=== PATIENT | female | born 1950 | race Caucasian/White ===

== ENCOUNTER 2017-10-16 06:25 | Inpatient (IN) | payer OTHER ==
[2017-10-15 09:50] VITALS: BMI 51.0
--- NOTE | 2017-10-15 20:48 | HISTORY & PHYSICAL EXAMINATION ---
DATE OF ADMISSION: 10/16/2017 CHIEF COMPLAINT: Chronic left knee pain. HISTORY OF PRESENT ILLNESS: This is a 67-year-old female patient of Dr. Baker who originally underwent a left total knee replacement in 2008 and subsequently went under a left knee poly exchange in 2009. The patient reported to the office approximately 1 week ago with increased knee pain. She did go to the Emergency Department. Laboratory studies showed she had a CRP of 96, a sed rate of 108. She also was complaining of fevers between 100 and 101 degrees. On 10/11/2017 in the office, a sterile procedure of aspirating fluid from her knee was sent off to [facility] and that was positive for infection. The patient is now scheduled for a left knee incision and drainage, synovectomy, poly exchange with a possible removal of implants with placement of cement spacer. PAST MEDICAL HISTORY: Hypertension, diabetes mellitus, hypothyroidism, acid reflux, obesity, dental issues, uterine cancer. SOCIAL HISTORY: Nonsmoker, nondrinker. FAMILY HISTORY: Noncontributory. PAST SURGICAL HISTORY: Tubal ligation, hysterectomy, left breast surgery, cholecystectomy, tonsillectomy, left total knee replacement, left total knee replacement poly exchange. REVIEW OF SYSTEMS: The patient complains of chronic left knee pain, otherwise denies any shortness of breath, chest pain, nausea, vomiting, or any other joint complaint. MEDICATIONS: Include: 1. Pantoprazole 40 mg daily. 2. Levothyroxine 70 mcg daily. 3. Metoprolol 100 mg 2 in the morning and 1 in the evening. 4. Plavix 75 mg daily. 5. Glimepiride 1 mg daily. 6. Pioglitazone 15 mg daily. 7. Valsartan/hydrochlorothiazide 80/12.5 daily. 8. Lasix 40 mg daily. 9. Celebrex 200 mg daily. 10. Metformin 500 mg b.i.d. 11. Bactrim b.i.d. ALLERGIES: TETRACYCLINE, PENICILLIN, AND CEPHALEXIN. PHYSICAL EXAMINATION: GENERAL: Well-developed, well-nourished 67-year-old female, in no acute distress. She is alert and oriented x3 and pleasant. HEENT: Normocephalic, atraumatic. Extraocular motions are intact. Pupils are equal, reactive to light. HEART: Regular rate and rhythm, no murmurs are appreciated. LUNGS: Clear. ABDOMEN: Soft and nontender. Bowel sounds are present. EXTREMITIES: Left knee reveals painful range of motion 0-90 degrees. She has a neutral alignment. Ligaments are stable. SKIN: Intact with no drainage or abrasions. NEUROLOGIC: Neurovascularly, she is intact in her left lower extremity. DIAGNOSES: Left knee infection, TKA in 2009 with an aseptic revision in 2010. She also has a history of hypertension, diabetes mellitus, hypothyroidism, acid reflux, obesity, dental issues, uterine cancer. PLAN: The patient was advised of her diagnosis. Indications, risks, benefits, postop course have all been reviewed. The patient wished to proceed with a left knee incision and drainage, synovectomy, poly exchange, and possible implant removal with placement of cement spacer. Necessary consent forms, preoperative testing, and clearances will be obtained. LAURA
[~2017-10-16] VITALS: Ht 160 cm; Wt 131.8 kg
[2017-10-16] VITALS (10 sets, daily range): BP systolic 143–172; BP diastolic 74–91; PULSE 59–80; TEMP 36.4–37.1; O2SAT 93–99; Ht 160 cm; Wt 131.8 kg
[~2017-10-16 06:25] MED LIST: ACETAMINOPHEN 500 MG TAB PO SCH; ACT15 PO; CALC600T9 PO; CLB/200 PO; CLOP1TAB15 PO; CeleBREX 200 MG CAP PO SCH; DVN80125 PO; FAMOTIDINE 20 MG TAB PO SCH; FRS/40 PO; GABAPENTIN 300 MG CAP PO SCH; GLIM1TAB2 PO; LACTATED RINGER'S 1000ML 1,000 ML IV SCH; LEVO75TA5 PO; METF-382 PO; METO100T14 PO; METOCLOPRAMIDE HCL 10 MG TAB PO SCH; PANT40TA PO; VANCOMYCIN IV 2,000 MG in SODIUM CHLORIDE 0.9% 500ML 500 ML IV SCH
[2017-10-16 08:17] LABS: HEMOGLOBIN A1C 7.4 % (4.5-5.6)
--- NOTE | 2017-10-16 08:18 | History & Physical Bridge Note ---
H&P Re-Evaluation Bridge Note: I have examined the patient, reviewed the History & Physical and in the interval since the performance of the History & Physical I have noted the following changes of clinical significance: No changes noted
[2017-10-16] MEDS ORDERED: POVIDONE-IODINE OP SOLN 30 ML BTL ONE (09:04)
[2017-10-16] MEDS ORDERED: BACITRACIN 50000 UNIT VIAL ONE ×2 (09:05→09:28)
[2017-10-16] MEDS ORDERED: FENTANYL CITRATE INJ 50 MCG/1 ML 2 ML VIAL ONE ×2 (09:06→12:08)
[2017-10-16] MEDS ORDERED: MIDAZOLAM HCL 1 MG/ML 2ML VIAL ONE (09:06)
[2017-10-16] MEDS ORDERED: VANCOMYCIN HCL 1000MG/20ML VIAL ONE (09:52)
[2017-10-16] MEDS ORDERED: ATROPINE SULFATE 0.1 MG/ML 5ML SYR IV PRN (11:00)
[2017-10-16] MEDS ORDERED: ONDANSETRON INJ 2 MG/ML 2 ML VIAL IV PRN ×2 (11:00→12:45)
[2017-10-16] MEDS ORDERED: EpHEDrine SULFATE INJ 50 MG/ML AMP IV PRN (11:00)
[2017-10-16] MEDS ORDERED: MEPERIDINE HCL 25 MG/ML CARP IV PRN (11:00)
[2017-10-16] MEDS ORDERED: HYDROmorphone INJ 0.5 MG/0.5 ML SYR IV PRN (11:00)
[2017-10-16] MEDS ORDERED: FENTANYL CITRATE INJ 50 MCG/1 ML 2 ML VIAL IV PRN (11:00)
[2017-10-16] MEDS ORDERED: LABETALOL HCL IV 5 MG/ML 20ML IV PRN (11:00)
[2017-10-16] MEDS ORDERED: ROCURONIUM BROMIDE 10 MG/ML 5 ML VIAL ONE (11:48)
[2017-10-16] MEDS ORDERED: LIDOCAINE HCL 2% 2 ML VIAL (20MG/ML) ONE (11:48)
[2017-10-16] MEDS ORDERED: ONDANSETRON INJ 2 MG/ML 2 ML VIAL ONE (11:48)
[2017-10-16] MEDS ORDERED: PROPOFOL IV EMULSION 10 MG/ML 20 ML VIAL ONE (11:48)
[2017-10-16] MEDS ORDERED: GLYCOPYRROLATE INJ 0.2 MG/ML VIAL ONE (11:49)
[2017-10-16] MEDS ORDERED: NEOSTIGMINE METHYLSULFATE 5 MG/5 ML SYR ONE (11:49)
--- NOTE | 2017-10-16 12:27 | [facility] Post Operative Brief Note ---
Immediate Operative Summary Operative Date Oct 16, 2017. Pre-Operative Diagnosis Left acute infection of total knee replacement,morbid obesity BMI 51.5 Post-Operative Diagnosis same .heterotopic bone extensive scar tissue Procedure(s) Performed Left Knee Incision and Drainage, Synovectomy, Excision Heterotopic Bone, Tibial Polyethylene Exchange, Application of Stimulan Beads,superficial wound vac application Surgeon Dr. Hermosillo Manager Lvn Surgeon(s) Shivam Busch PA-C Estimated Blood Loss 30 cc Findings Consistent with Post-Op Diagnosis Specimens Culture: #1 Left knee fluid- culture and sensitivity, gram stain, aerobic/anaerobic #2 Left knee fluid- culture and sensitivity, gram stain, aerobic/anaerobic #3: Left knee tissue- culture and sensitivity, gram stain, aerobic/anaerobic #4 : Left knee tissue- culture and sensitivity, gram stain, aerobic/anaerobic #5: Left knee tissue- culture and sensitivity, gram stain, aerobic/anaerobic Permanent A: explanted hardware, left knee B: synovium left knee Drains 4 hemovac Anesthesia Type General Complication(s) none Disposition Disposition: Recovery Room / PACU Overlapping Procedure I was present for: the critical portions of procedure.
[2017-10-16] MEDS ORDERED: TRAMADOL HCL 50 MG TAB PO PRN (12:45)
[2017-10-16] MEDS ORDERED: MoRPHine SULFATE 4 MG/ML 1 ML CARP\\VIAL IV PRN (12:45)
[2017-10-16] MEDS ORDERED: SOD PHOSPHATE/SOD BIPHOSPHATE ENEMA 132 ML BTL PR PRN (12:45)
[2017-10-16] MEDS ORDERED: VANCOMYCIN CONSULT ACTIVE PRN (12:45)
[2017-10-16] MEDS ORDERED: MAGNESIUM HYDROXIDE SUSP 30 ML UDC PO PRN (12:45)
[2017-10-16] MEDS ORDERED: METOCLOPRAMIDE HCL INJ 5 MG/ML 2 ML VIAL IV PRN (12:45)
[2017-10-16] MEDS ORDERED: BISACODYL 10 MG SUPP PR PRN (12:45)
[2017-10-16] MEDS ORDERED: ZOLPIDEM TARTRATE 5 MG TAB PO PRN (12:45)
--- NOTE | 2017-10-16 13:34 | DIAGNOSTIC IMAGING REPORT ---
L KNEE 1 OR 2 VIEWS ROUTINE HISTORY: 67 years-old Female AP/LATERAL IN PACU LEFT KNEE status post surgery of the left knee with total joint arthroplasty COMPARISON: Left knee radiographs 07/26/2008 TECHNIQUE: 2 views of the left knee FINDINGS: Left knee total joint arthroplasty with prior patellar resurfacing in satisfactory alignment. No evidence of hardware fracture or loosening. Status post placement of antibiotic beads within the left knee joint space. Postsurgical soft tissue swelling and deep tissue air is noted about the knee with surgical drain in place. No acute fracture or dislocation. Indeterminate soft tissue calcifications project over the medial aspect of the right lower leg. IMPRESSION: Status post placement of antibiotic beads about the left knee joint space with total joint arthroplasty. The above report was generated using voice recognition software. It may contain grammatical, syntax or spelling errors. Electronically signed by: Carlton Epps M.D. 10/16/2017 1:32 PM Dictated Date/Time: 10/16/2017 1:29 PM
--- NOTE | 2017-10-16 14:00 | Anesthesiology Progress Note ---
Anesthesia Post Op Note Date & Time Oct 16, 2017 at 14:00 Vital Signs Pain Intensity: 4.0 Vital Signs Past 12 Hours Date Time Temp Pulse Resp B/P (MAP) Pulse Ox O2 Delivery O2 Flow Rate FiO2 10/16/17 13:45 135/70 10/16/17 13:44 36.1 62 18 135/70 97 Room Air 10/16/17 13:43 61 24 10/16/17 13:43 61 24 97 10/16/17 13:40 134/72 10/16/17 13:38 59 21 10/16/17 13:38 59 21 97 10/16/17 13:35 135/69 10/16/17 13:33 57 21 96 10/16/17 13:33 58 21 10/16/17 13:30 139/64 10/16/17 13:28 61 23 96 10/16/17 13:28 60 23 10/16/17 13:25 140/77 10/16/17 13:23 65 22 10/16/17 13:23 65 22 96 10/16/17 13:20 131/76 10/16/17 13:18 65 22 10/16/17 13:18 65 22 96 10/16/17 13:15 139/65 10/16/17 13:13 66 23 10/16/17 13:13 66 23 96 10/16/17 13:10 129/79 10/16/17 13:08 66 23 10/16/17 13:08 66 23 97 10/16/17 13:05 136/69 10/16/17 13:03 68 22 96 10/16/17 13:03 68 22 10/16/17 13:00 143/70 10/16/17 12:58 68 23 10/16/17 12:58 68 23 97 10/16/17 12:55 141/78 10/16/17 12:53 71 22 97 10/16/17 12:53 70 22 10/16/17 12:50 142/76 10/16/17 12:48 72 22 96 10/16/17 12:48 72 22 10/16/17 12:47 151/79 10/16/17 12:43 76 24 96 10/16/17 12:43 76 24 10/16/17 12:38 36.1 73 16 151/79 96 Mask 9 10/16/17 06:49 36.9 62 20 166/91 Room Air Notes Mental Status: alert / awake / arousable, participated in evaluation Pt Amnestic to Procedure: Yes Nausea / Vomiting: adequately controlled Pain: adequately controlled Airway Patency, RR, SpO2: stable & adequate BP & HR: stable & adequate Hydration State: stable & adequate Anesthetic Complications: no major complications apparent
[2017-10-16] MEDS ORDERED: MoRPHine SULFATE 4 MG/ML 1 ML CARP\\VIAL ONE (14:41)
--- NOTE | 2017-10-16 14:53 | Medical Consult ---
Consultation Date of Consultation: Oct 16, 2017. Attending Physician: Christiano Hermosillo M.D. Reason for Consultation: Medical management History of Present Illness 67 y/o F who was admitted on 10/16 s/p L knee I&D, Synovectomy, Excision Heterotopic Bone, Tibial Polyethylene Exchange, Application of Stimulan Beads, and superficial wound vac application with Dr. Hermosillo. Does have pain to the L knee, but expected. Pt is doing well post-op. Tolerating PO without issue. Pt denies fever, SOB, chest pain, abd pain, n/v/c/d, LE swelling. Past Medical/Surgical History HTN DM Hypothyroid GERD Uterine cancer s/p hysterectomy and radiation Denies hx of CVA or AZ Had been on aspirin 81mg for prevention in the setting of multiple risk factors and FH however developed ulcers related to aspirin use. This was changed to plavix by neuro for prevention purposes due to aspirin intolerance. Family History CVA Social History Smoking Status: Never Smoker Alcohol Use: none Drug Use: none Allergies Coded Allergies: Tetracycline (Verified Allergy, Intermediate, HIVES,ITCHINESS, 10/15/17) Cephalexin (Verified Allergy, Unknown, ITCHING, 10/15/17) Nickel (Verified Allergy, Unknown, HEAT AT SKIN CONTACT, 10/15/17) Penicillins (Verified Allergy, Unknown, HIVES, 10/15/17) Current Inpatient Medications Current Inpatient Medications Medications (Trade) Dose Ordered Sig/Pedro Route Start Time Stop Time Status Last Admin Dose Admin Acetaminophen (Tylenol Tab) 1,000 mg PREOP PO 10/16/17 06:00 10/16/17 18:00 10/16/17 07:38 1,000 MG Celecoxib (CeleBREX CAP) 200 mg PREOP PO 10/16/17 06:00 10/16/17 18:00 10/16/17 07:39 200 MG Famotidine (Pepcid Tab) 20 mg PREOP PO 10/16/17 06:00 10/16/17 18:00 10/16/17 07:40 20 MG Gabapentin (Neurontin Cap) 300 mg PREOP PO 10/16/17 06:00 10/16/17 18:00 10/16/17 07:41 300 MG Metoclopramide HCl (Reglan Tab) 10 mg PREOP PO 10/16/17 06:00 10/16/17 18:00 10/16/17 07:40 10 MG Vancomycin HCl 2000 mg/Sodium Chloride 540 ml @ 200 mls/hr PREOP IV 10/16/17 06:00 10/17/17 05:59 10/16/17 07:34 200 MLS/HR Lactated Ringer's 1,000 ml @ 15 mls/hr Q24H IV 10/16/17 06:00 10/17/17 05:59 10/16/17 07:37 15 MLS/HR Fentanyl Citrate (Fentanyl Inj) 50 mcg Q5M PRN IV 10/16/17 11:00 10/16/17 16:00 Hydromorphone HCl (Dilaudid Inj) 0.5 mg Q5M PRN IV 10/16/17 11:00 10/16/17 16:00 Meperidine HCl (Demerol Inj) 25 mg Q5M PRN IV 10/16/17 11:00 10/16/17 16:00 Ondansetron HCl (Zofran Inj) 4 mg ONE PRN IV 10/16/17 11:00 10/16/17 16:00 Labetalol HCl (Normodyne IV) 5 mg Q5M PRN IV 10/16/17 11:00 10/16/17 16:00 Ephedrine Sulfate (EpHEDrine SULFATE INJ) 5 mg Q5M PRN IV 10/16/17 11:00 10/16/17 16:00 Atropine Sulfate (Atropine Sulfate 0.1mg/ml Inj) 0.5 mg Q1M PRN IV 10/16/17 11:00 10/16/17 16:00 Celecoxib (CeleBREX CAP) 200 mg QAM PO 10/17/17 09:00 11/16/17 08:59 Clopidogrel Bisulfate (plAVix TAB) 75 mg QAM PO 10/17/17 09:00 11/16/17 08:59 Furosemide (Lasix Tab) 40 mg QAM PO 10/17/17 09:00 11/16/17 08:59 Levothyroxine Sodium (Synthroid Tab) 75 mcg DAILYBB PO 10/17/17 06:00 11/16/17 05:59 Metoprolol Tartrate (Lopressor Tab) 100 mg QPM PO 10/16/17 21:00 11/15/17 20:59 Metoprolol Tartrate (Lopressor Tab) 200 mg QAM PO 10/17/17 09:00 11/16/17 08:59 Pantoprazole Sodium (Protonix Tab) 40 mg QAM PO 10/17/17 09:00 11/16/17 08:59 Valsartan (Diovan Tab) 80 mg QAM PO 10/17/17 09:00 11/16/17 08:59 Calcium/Vitamin D (Caltrate Plus Tab) 1 tab QAM PO 10/17/17 09:00 11/16/17 08:59 Sodium Chloride 1,000 ml @ 100 mls/hr Q10H IV 10/16/17 15:00 10/17/17 14:59 Oxycodone HCl (Roxicodone Immediate Rel Tab) 1 TABLET FOR PAIN RATING... Q4H PRN PO 10/16/17 12:45 10/30/17 12:44 Morphine Sulfate (MoRPHine SULFATE INJ) as needed Q2H PRN IV 10/16/17 12:45 10/30/17 12:44 Acetaminophen (Tylenol Tab) 1,000 mg Q8H PO 10/16/17 22:00 11/15/17 21:59 Magnesium Hydroxide (Milk Of Magnesia Susp) 30 ml Q6H PRN PO 10/16/17 12:45 11/15/17 12:44 Bisacodyl (Dulcolax Supp) 10 mg DAILY PRN FL 10/16/17 12:45 11/15/17 12:44 Sodium Biphosphate/ Sodium Phosphate (Fleet Enema) 132 ml DAILY PRN FL 10/16/17 12:45 11/15/17 12:44 UNV Docusate Sodium (coLACE CAP) 100 mg BID PO 10/16/17 21:00 11/15/17 20:59 UNV Diphenhydramine HCl (Benadryl Cap) 25 mg Q8H PRN PO 10/16/17 12:45 11/15/17 12:44 UNV Zolpidem Tartrate (Ambien Tab) 5 mg HSZ PRN PO 10/16/17 12:45 11/15/17 12:44 UNV Multivitamins (Multivitamin Tab) 1 tab QAM PO 10/17/17 09:00 11/16/17 08:59 UNV Ondansetron HCl (Zofran Inj) 4 mg Q6H PRN IV 10/16/17 12:45 11/15/17 12:44 UNV Metoclopramide HCl (Reglan Inj) 10 mg Q6H PRN IV 10/16/17 12:45 11/15/17 12:44 UNV Pantoprazole Sodium (Protonix Tab) 40 mg QAM PO 10/17/17 09:00 11/16/17 08:59 UNV Tramadol HCl (Ultram Tab) 1 tablet for pain rating... Q4H PRN PO 10/16/17 12:45 11/15/17 12:44 UNV Rivaroxaban (Xarelto Tab) 10 mg Q24H PO 10/17/17 08:00 10/31/17 07:59 UNV Vancomycin HCl 1000 mg/Sodium Chloride 270 ml @ 125 mls/hr Q12 IV 10/16/17 21:00 10/26/17 20:59 UNV Vancomycin HCl (Consult) 1 ea UD PRN N/A 10/16/17 12:45 11/15/17 12:44 UNV Insulin Aspart (novoLOG ASPART) SLIDING SCALE G... ACHS SC 10/16/17 16:00 11/15/17 15:59 UNV Review of Systems Pertinent positives and negatives reviewed in HPI--all others negative Physical Exam Date Time Temp Pulse Resp B/P (MAP) Pulse Ox O2 Delivery O2 Flow Rate FiO2 10/16/17 14:31 59 16 172/82 (112) 97 Nasal Cannula 3.0 10/16/17 13:45 135/70 10/16/17 13:44 36.1 62 18 135/70 97 Room Air 10/16/17 13:43 61 24 10/16/17 13:43 61 24 97 10/16/17 13:40 134/72 10/16/17 13:38 59 21 10/16/17 13:38 59 21 97 10/16/17 13:35 135/69 10/16/17 13:33 57 21 96 10/16/17 13:33 58 21 10/16/17 13:30 139/64 10/16/17 13:28 61 23 96 10/16/17 13:28 60 23 10/16/17 13:25 140/77 10/16/17 13:23 65 22 10/16/17 13:23 65 22 96 10/16/17 13:20 131/76 10/16/17 13:18 65 22 10/16/17 13:18 65 22 96 10/16/17 13:15 139/65 10/16/17 13:13 66 23 10/16/17 13:13 66 23 96 10/16/17 13:10 129/79 10/16/17 13:08 66 23 10/16/17 13:08 66 23 97 10/16/17 13:05 136/69 10/16/17 13:03 68 22 96 10/16/17 13:03 68 22 10/16/17 13:00 143/70 10/16/17 12:58 68 23 10/16/17 12:58 68 23 97 10/16/17 12:55 141/78 10/16/17 12:53 71 22 97 10/16/17 12:53 70 22 10/16/17 12:50 142/76 10/16/17 12:48 72 22 96 10/16/17 12:48 72 22 10/16/17 12:47 151/79 10/16/17 12:43 76 24 96 10/16/17 12:43 76 24 10/16/17 12:38 36.1 73 16 151/79 96 Mask 9 10/16/17 06:49 36.9 62 20 166/91 Room Air General Appearance: no apparent distress, + obese Head: normocephalic, atraumatic Eyes: normal inspection, sclerae normal Respiratory/Chest: normal breath sounds, no respiratory distress Cardiovascular: regular rate, rhythm, no edema Abdomen/GI: non tender, soft Extremities/Musculoskelatal: no calf tenderness, no pedal edema Neurologic/Psych: alert, normal mood/affect, oriented x 3 Skin: normal color, warm/dry Laboratory Results Last 24 Hours Test 10/16/17 06:46 10/16/17 07:39 10/16/17 12:41 Bedside Glucose 190 mg/dl 220 mg/dl Prothrombin Time 10.7 SECONDS Prothromb Time International Ratio 1.0 Activated Partial Thromboplast Time 25.0 SECONDS Partial Thromboplastin Ratio 1.0 Estimated Average Glucose 166 mg/dl Hemoglobin A1c 7.4 % Albumin 3.1 gm/dl Assessment & Plan 67 y/o F who was admitted on 10/16 s/p L knee I&D, Synovectomy, Excision Heterotopic Bone, Tibial Polyethylene Exchange, Application of Stimulan Beads, and superficial wound vac application with Dr. Hermosillo. L knee pain: s/p procedure as above Abx, DVT proph, and diet as per ortho ID recs for vanco until cx are returned and then likely 6-8 weeks of IV abx Pre-op Hb 11.9 HTN: stable. continue home meds DM: continue home meds A1c 7.4 Hypothyroid: continue home meds Plavix: resume as per ortho Per pt, this is for CAD prevention only in the setting of aspirin intolerance OA: Celebrex Other: Full code
--- NOTE | 2017-10-16 15:04 | Medical Consult ---
Consultation Date of Consultation: Oct 16, 2017. Attending Physician: Christiano Hermosillo M.D. 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 Last seen in April 2015. She now presents with 1-2 months of low-grade fevers and pain in her left knee. Over the past several days, pain in fever worsened, was seen an urgent care center and felt to have infection. Had aspiration done by Orthopedics with finding of evidence of infection. She was admitted to the hospital as now undergone incision and drainage with poly exchange, with operative Gram stain and cultures pending. Patient currently on vancomycin. Expected postop discomfort. Currently hemodynamically stable. Past Medical/Surgical History PAST MEDICAL HISTORY: Hypertension, diabetes mellitus, hypothyroidism, acid reflux, obesity, dental issues, uterine cancer. PAST SURGICAL HISTORY: Tubal ligation, hysterectomy, left breast surgery, cholecystectomy, tonsillectomy, left total knee replacement, left total knee replacement poly exchange. Family History Noncontributory Social History Smoking Status: Never Smoker Allergies Coded Allergies: Tetracycline (Verified Allergy, Intermediate, HIVES,ITCHINESS, 10/15/17) Cephalexin (Verified Allergy, Unknown, ITCHING, 10/15/17) Nickel (Verified Allergy, Unknown, HEAT AT SKIN CONTACT, 10/15/17) Penicillins (Verified Allergy, Unknown, HIVES, 10/15/17) Current Inpatient Medications Current Inpatient Medications Medications (Trade) Dose Ordered Sig/Pedro Route Start Time Stop Time Status Last Admin Dose Admin Acetaminophen (Tylenol Tab) 1,000 mg PREOP PO 10/16/17 06:00 10/16/17 18:00 10/16/17 07:38 1,000 MG Celecoxib (CeleBREX CAP) 200 mg PREOP PO 10/16/17 06:00 10/16/17 18:00 10/16/17 07:39 200 MG Famotidine (Pepcid Tab) 20 mg PREOP PO 10/16/17 06:00 10/16/17 18:00 10/16/17 07:40 20 MG Gabapentin (Neurontin Cap) 300 mg PREOP PO 10/16/17 06:00 10/16/17 18:00 10/16/17 07:41 300 MG Metoclopramide HCl (Reglan Tab) 10 mg PREOP PO 10/16/17 06:00 10/16/17 18:00 10/16/17 07:40 10 MG Vancomycin HCl 2000 mg/Sodium Chloride 540 ml @ 200 mls/hr PREOP IV 10/16/17 06:00 10/17/17 05:59 10/16/17 07:34 200 MLS/HR Lactated Ringer's 1,000 ml @ 15 mls/hr Q24H IV 10/16/17 06:00 10/17/17 05:59 10/16/17 07:37 15 MLS/HR Fentanyl Citrate (Fentanyl Inj) 50 mcg Q5M PRN IV 10/16/17 11:00 10/16/17 16:00 Hydromorphone HCl (Dilaudid Inj) 0.5 mg Q5M PRN IV 10/16/17 11:00 10/16/17 16:00 Meperidine HCl (Demerol Inj) 25 mg Q5M PRN IV 10/16/17 11:00 10/16/17 16:00 Ondansetron HCl (Zofran Inj) 4 mg ONE PRN IV 10/16/17 11:00 10/16/17 16:00 Labetalol HCl (Normodyne IV) 5 mg Q5M PRN IV 10/16/17 11:00 10/16/17 16:00 Ephedrine Sulfate (EpHEDrine SULFATE INJ) 5 mg Q5M PRN IV 10/16/17 11:00 10/16/17 16:00 Atropine Sulfate (Atropine Sulfate 0.1mg/ml Inj) 0.5 mg Q1M PRN IV 10/16/17 11:00 10/16/17 16:00 Celecoxib (CeleBREX CAP) 200 mg QAM PO 10/17/17 09:00 11/16/17 08:59 Clopidogrel Bisulfate (plAVix TAB) 75 mg QAM PO 10/17/17 09:00 11/16/17 08:59 Furosemide (Lasix Tab) 40 mg QAM PO 10/17/17 09:00 11/16/17 08:59 Levothyroxine Sodium (Synthroid Tab) 75 mcg DAILYBB PO 10/17/17 06:00 11/16/17 05:59 Metoprolol Tartrate (Lopressor Tab) 100 mg QPM PO 10/16/17 21:00 11/15/17 20:59 Metoprolol Tartrate (Lopressor Tab) 200 mg QAM PO 10/17/17 09:00 11/16/17 08:59 Pantoprazole Sodium (Protonix Tab) 40 mg QAM PO 10/17/17 09:00 11/16/17 08:59 Valsartan (Diovan Tab) 80 mg QAM PO 10/17/17 09:00 11/16/17 08:59 Calcium/Vitamin D (Caltrate Plus Tab) 1 tab QAM PO 10/17/17 09:00 11/16/17 08:59 Sodium Chloride 1,000 ml @ 100 mls/hr Q10H IV 10/16/17 15:00 10/17/17 14:59 Oxycodone HCl (Roxicodone Immediate Rel Tab) 1 TABLET FOR PAIN RATING... Q4H PRN PO 10/16/17 12:45 10/30/17 12:44 Morphine Sulfate (MoRPHine SULFATE INJ) as needed Q2H PRN IV 10/16/17 12:45 10/30/17 12:44 Acetaminophen (Tylenol Tab) 1,000 mg Q8H PO 10/16/17 22:00 11/15/17 21:59 Magnesium Hydroxide (Milk Of Magnesia Susp) 30 ml Q6H PRN PO 10/16/17 12:45 11/15/17 12:44 Bisacodyl (Dulcolax Supp) 10 mg DAILY PRN MN 10/16/17 12:45 11/15/17 12:44 Sodium Biphosphate/ Sodium Phosphate (Fleet Enema) 132 ml DAILY PRN MN 10/16/17 12:45 11/15/17 12:44 Docusate Sodium (coLACE CAP) 100 mg BID PO 10/16/17 21:00 11/15/17 20:59 Diphenhydramine HCl (Benadryl Cap) 25 mg Q8H PRN PO 10/16/17 12:45 11/15/17 12:44 Zolpidem Tartrate (Ambien Tab) 5 mg HSZ PRN PO 10/16/17 12:45 11/15/17 12:44 Multivitamins (Multivitamin Tab) 1 tab QAM PO 10/17/17 09:00 11/16/17 08:59 Ondansetron HCl (Zofran Inj) 4 mg Q6H PRN IV 10/16/17 12:45 11/15/17 12:44 Metoclopramide HCl (Reglan Inj) 10 mg Q6H PRN IV 10/16/17 12:45 11/15/17 12:44 Tramadol HCl (Ultram Tab) 1 tablet for pain rating... Q4H PRN PO 10/16/17 12:45 11/15/17 12:44 Rivaroxaban (Xarelto Tab) 10 mg Q24H PO 10/17/17 08:00 10/31/17 07:59 UNV Vancomycin HCl 1750 mg/Sodium Chloride 535 ml @ 200 mls/hr Q16H IV 10/16/17 18:00 10/26/17 17:59 Vancomycin HCl (Consult) 1 ea UD PRN N/A 10/16/17 12:45 11/15/17 12:44 Insulin Aspart (novoLOG ASPART) SLIDING SCALE G... ACHS SC 10/16/17 17:15 11/15/17 17:14 Hydrochlorothiazide (Hydrochlorothiazide Tab) 12.5 mg QAM PO 10/17/17 09:00 11/16/17 08:59 Review of Systems All systems were reviewed and are negative except as per HPI Physical Exam Date Time Temp Pulse Resp B/P (MAP) Pulse Ox O2 Delivery O2 Flow Rate FiO2 10/16/17 14:31 59 16 172/82 (112) 97 Nasal Cannula 3.0 10/16/17 13:45 135/70 10/16/17 13:44 36.1 62 18 135/70 97 Room Air 10/16/17 13:43 61 24 10/16/17 13:43 61 24 97 10/16/17 13:40 134/72 10/16/17 13:38 59 21 10/16/17 13:38 59 21 97 10/16/17 13:35 135/69 10/16/17 13:33 57 21 96 10/16/17 13:33 58 21 10/16/17 13:30 139/64 10/16/17 13:28 61 23 96 10/16/17 13:28 60 23 10/16/17 13:25 140/77 10/16/17 13:23 65 22 10/16/17 13:23 65 22 96 10/16/17 13:20 131/76 10/16/17 13:18 65 22 10/16/17 13:18 65 22 96 10/16/17 13:15 139/65 10/16/17 13:13 66 23 10/16/17 13:13 66 23 96 10/16/17 13:10 129/79 10/16/17 13:08 66 23 10/16/17 13:08 66 23 97 10/16/17 13:05 136/69 10/16/17 13:03 68 22 96 10/16/17 13:03 68 22 10/16/17 13:00 143/70 10/16/17 12:58 68 23 10/16/17 12:58 68 23 97 10/16/17 12:55 141/78 10/16/17 12:53 71 22 97 10/16/17 12:53 70 22 10/16/17 12:50 142/76 10/16/17 12:48 72 22 96 10/16/17 12:48 72 22 10/16/17 12:47 151/79 10/16/17 12:43 76 24 96 10/16/17 12:43 76 24 10/16/17 12:38 36.1 73 16 151/79 96 Mask 9 10/16/17 06:49 36.9 62 20 166/91 Room Air General Appearance: WD/WN, no apparent distress Head: normocephalic, atraumatic Eyes: normal inspection, EOMI, sclerae normal ENT: normal ENT inspection, hearing grossly normal, pharynx normal Neck: supple, no adenopathy, thyroid normal, trachea midline Respiratory/Chest: chest non-tender, lungs clear, normal breath sounds, no respiratory distress Cardiovascular: regular rate, rhythm, no gallop, no murmur Abdomen/GI: normal bowel sounds, non tender, soft, no organomegaly Back: normal inspection, no CVA tenderness Extremities/Musculoskelatal: no calf tenderness, normal capillary refill Neurologic/Psych: alert, oriented x 3 Skin: normal color, warm/dry, no rash, + pertinent finding (Surgical dressing intact left knee) Lymphatic: no adenopathy Laboratory Results Date/Time Source Procedure Growth Status 10/16/17 10:20 Tissue Knee Left Gram Stain Pending Received 10/16/17 10:20 Tissue Knee Left Bacterial Culture Pending Received 10/16/17 10:05 Tissue Knee Left Gram Stain Pending Received 10/16/17 10:05 Tissue Knee Left Bacterial Culture Pending Received 10/16/17 10:05 Tissue Knee Left Gram Stain Pending Received 10/16/17 10:05 Tissue Knee Left Bacterial Culture Pending Received 10/16/17 10:00 Abscess Knee Left Gram Stain Pending Received 10/16/17 10:00 Abscess Knee Left Bacterial Culture Pending Received 10/16/17 10:00 Abscess Knee Left Gram Stain Pending Received 10/16/17 10:00 Abscess Knee Left Bacterial Culture Pending Received Last 24 Hours Test 10/16/17 06:46 10/16/17 07:39 10/16/17 12:41 Bedside Glucose 190 mg/dl 220 mg/dl Prothrombin Time 10.7 SECONDS Prothromb Time International Ratio 1.0 Activated Partial Thromboplast Time 25.0 SECONDS Partial Thromboplastin Ratio 1.0 Estimated Average Glucose 166 mg/dl Hemoglobin A1c 7.4 % Albumin 3.1 gm/dl Patient Name: SOLOMON PARIKH Unit Number: [id number] Dictated: 10/16/171328 Transcribed: 10/16/171328 JR Printed Date/Time: [~ rep prt dt]/[~ rep prt tm] [~ rep ct labl] - [~ rep ct ivnm] [facility] [place] [address] Dictated: 10/16/171328 Transcribed: 10/16/171328 JRB Printed Date/Time: [~ rep prt dt]/[~ rep prt tm] [~ rep ct labl] - [~ rep ct ivnm] L KNEE 1 OR 2 VIEWS ROUTINE HISTORY: 67 years-old Female AP/LATERAL IN PACU LEFT KNEE status post surgery of the left knee with total joint arthroplasty COMPARISON: Left knee radiographs 07/26/2008 TECHNIQUE: 2 views of the left knee FINDINGS: Left knee total joint arthroplasty with prior patellar resurfacing in satisfactory alignment. No evidence of hardware fracture or loosening. Status post placement of antibiotic beads within the left knee joint space. Postsurgical soft tissue swelling and deep tissue air is noted about the knee with surgical drain in place. No acute fracture or dislocation. Indeterminate soft tissue calcifications project over the medial aspect of the right lower leg. IMPRESSION: Status post placement of antibiotic beads about the left knee joint space with total joint arthroplasty. The above report was generated using voice recognition software. It may contain grammatical, syntax or spelling errors. Electronically signed by: Carlton Epps M.D. 10/16/2017 1:32 PM Dictated Date/Time: 10/16/2017 1:29 PM The status of this report is Signed. Draft = Not yet reviewed or approved by Radiologist. Signed = Reviewed and approved by Radiologist. <AttendingPhy>Christiano Hermosillo M.D.</AttendingPhy> <FamilyPhy>Marianne Bertrand M.D.</FamilyPhy> <PrimaryPhy>Marianne Bertrand M.D.</PrimaryPhy> <UnitNumber> [id number]</UnitNumber> <VisitNumber>[id number]</VisitNumber> <PatientName> SOLOMON PARIKH</PatientName> <DateOfBirth>1950</DateOfBirth> <Location> [facility]</Location> <ServiceDate>10/16/17</ServiceDate> <MNE>ESINDI</MNE> < OrderingPhy>Shivam Busch PAC</OrderingPhy> <OrderingPhyMNE>f rep ord dr smiley</ OrderingPhyMNE> <DictatingPhyMNE>f rep dict dr smiley</DictatingPhyMNE> <CCListMNE> f rep ct sherice</CCListMNE> <AdmittingPhyMNE>f pt admit dr smiley</AdmittingPhyMNE> < AttendingPhyMNE>f pt attend dr smiley</AttendingPhyMNE> <ConsultingPhyMNE>f pt consult dr smiley</ConsultingPhyMNE> <FamilyPhyMNE>f pt fam dr smiley</FamilyPhyMNE> <OtherPhyMNE>f pt other dr smiley</OtherPhyMNE> < PrimaryPhyMNE>f pt prim care dr smiley</PrimaryPhyMNE> <ReferringPhyMNE>f pt referring dr smiley</ReferringPhyMNE> Assessment & Plan Infected left TKA now status post I and D, poly exchange, and placement of antibiotic beads. Patient should be continued on vancomycin pending operative culture results. Will need prolonged i.e. 6-8 weeks of IV antibiotics, and likely chronic suppressive therapy thereafter. Will follow.
[2017-10-16] MEDS: SODIUM CHLORIDE 0.9% 1000ML 1,000 ML IV SCH (15:12)
--- NOTE | 2017-10-16 15:13 | Pharmacy Progress Note ---
Pharmacy Antibiotic Consult Date of Service: Oct 16, 2017. Pharmacy Dosing Scope Pharmacy is consulted to initiate Vancomycin IV dosing therapy, order appropriate labs and adjust drug dose/frequency. Subjective The patient is a 67 year old female admitted on Oct 16, 2017 at 12:50. Objective Height (Feet): 5 Height (Inches): 3 Weight (Kilograms): 131.82 Lab Results (24hrs): Test 10/16/17 06:46 10/16/17 07:39 10/16/17 12:41 Bedside Glucose 190 mg/dl (70-90) 220 mg/dl (70-90) Prothrombin Time 10.7 SECONDS (9.0-12.0) Prothromb Time International Ratio 1.0 (0.9-1.1) Activated Partial Thromboplast Time 25.0 SECONDS (21.0-31.0) Partial Thromboplastin Ratio 1.0 Estimated Average Glucose 166 mg/dl Hemoglobin A1c 7.4 % (4.5-5.6) Albumin 3.1 gm/dl (3.4-5.0) Assessment & Plan Assessment 67 year old female admitted s/p L knee I&D, Synovectomy, Excision Heterotopic Bone, Tibial Polyethylene Exchange, Application of Stimulan Beads,and superficial wound vac application with Dr. Hermosillo.. * Cultures of knee tissue and abscess drainage pending. * Pt BMI=55.1 Plan Vancomycin * Pt received 2000mg (15mg/kg) pre-op * Maintenance dose: Vanco 1750mg (13mg/kg) q 16hours * Trough level ordered for 10/18 @0130, just prior to 3rd maintenance dose * level ordered prior to steady state due to her BMI of 55 and likelihood of accumulation. * Goal trough level for joint infection: 15-20 mcg/mL Pharmacy will continue to follow and will adjust dose/frequency as necessary. Thank you
[2017-10-16] MEDS: VANCOMYCIN IV 1,750 MG in SODIUM CHLORIDE 0.9% 500ML 500 ML IV SCH (17:32)
[2017-10-16] MEDS: INSULIN ASPART 100 UNITS/ML 3 ML PEN SC SCH ×2 (17:44→21:00)
[2017-10-16] MEDS: DOCUSATE SODIUM 100 MG CAP PO SCH (20:50)
[2017-10-16] MEDS: METOPROLOL TARTRATE 100 MG TAB PO SCH (20:50)
[2017-10-16] MEDS: OXYCODONE HCL IR 5 MG TAB (IMMEDIATE RELEASE) PO PRN (20:51)
[2017-10-16] MEDS: ACETAMINOPHEN 500 MG TAB PO SCH (22:11)
--- NOTE | 2017-10-16 22:32 | OPERATIVE REPORT ---
DATE OF OPERATION: 10/16/2017 INDICATION FOR PROCEDURE: The patient is a 67-year-old female who presents with 1 week of low-grade fevers, swelling in her knee and some pain. She had a history of index total knee replacement in 2008. Did well for about a year and then had an infection in her knee replacement requiring a poly exchange and a synovectomy type procedure. She had complete recovery at that time and has no significant symptoms or problems until this last week. She has had some history of recently having an increased sed rate and she was being worked up for, etiology was unclear. The knee was not bothering her, however. She does have some chronic cellulitis of her left lower extremity on the ipsilateral leg. This was a chronic noninfectious cellulitis typically. She was seen in the office, worked up for her condition. Prior to me seeing her, she was seen in the Emergency Room and they gave her intravenous antibiotics and placed her on Bactrim. We did aspirate her knee and obtained alpha-defensin, Synovasure testing. Her cell count of her knee fluid was over 100,000 white cells and alpha-defensin positive and antigens were positive for staph and enterococcus. Her x-rays demonstrate no loosening of her prosthetic, satisfactory aligned total knee replacement with a NexGen Devan knee replacement. She does have some heterotopic ossification noted. PREOPERATIVE DIAGNOSES: Acute septic left total knee replacement, history of remote septic total knee replacement in the past that responded well to polyethylene exchange and synovectomy type procedure. The patient also has morbid obesity with BMI 51.5 and diabetes mellitus. POSTOPERATIVE DIAGNOSES: Left knee septic total knee replacement, synovitis, heterotopic ossification, morbid obesity, diabetes mellitus. PROCEDURE: Left knee incision and drainage, polyethylene exchange of the tibial component including synovectomy, excision heterotopic bone, placement of Stimulan antibiotic beads, superficial wound VAC application and increased difficulty due to morbid obesity, BMI 51.5. SURGEON: Christiano Hermosillo MD MINER: LEONIE Alegria. ANESTHESIA: General. DRAINS: Four Hemovac. SPECIMENS: Multiple cultures including 3 soft tissue cultures, one swab culture, and synovium for permanent specimen. ESTIMATED BLOOD LOSS: 30 mL. COMPLICATIONS: None. OPERATIVE PROCEDURE: The patient taken to the operating room, anesthetized under general anesthetic. Pneumatic tourniquet was placed about her obese left upper thigh. Left knee exam demonstrated erythema, mild effusion. She has stiff knee with 0-90 degrees range of motion and she has some chronic noninfectious cellulitis and lymphedema, left lower extremity. Her left lower extremity was prepped and draped in sterile fashion. Her prep was with ChloraPrep. She was given vancomycin antibiotic, which was started preoperatively. Leg was elevated and pneumatic tourniquet was raised to 350 mmHg. Anterior incision was made through a prior scar. Skin was incised through some edematous scarred fat. We were down. Incision was taken down to the fascia and subcutaneous flaps were elevated off the fascia. She did have some calcification in the prepatellar bursa ,old chronic calcification not infected. This was resected. Incision was made through the medial retinaculum extended up to the mid third of the quadriceps tendon and extended down to the medial tibial tubercle. We did note some mildly cloudy drainage, which was cultured with swabs and there was some chronic synovitis of the knee noted throughout the knee with scar tissue. It did not look severely synovitic. There is no vin pus in the knee. At this time, I did a thorough electrocautery synovectomy starting with the medial side in the medial gutter and then suprapatellar pouch and then lateral gutter and then excision of the scarred infrapatellar fat pad. There was heterotopic bone and scar tissue surrounding the patella button, there was no wear on the patella button at all. We removed some of the heterotopic bone and inflammatory scar tissue around the patella. This allowed us to then flex the knee, inspected the tibial component, which had no evidence of any wear and normal appearance to it. To facilitate further synovectomy, the tibial component was removed with the extraction device without incident and as this was performed and allowed us to get better exposure to the posterior synovial capsule and lateral gutter areas. Some further synovectomy was performed with either with electrocautery or with a rongeur and we used a pituitary rongeur posteriorly. In the notch area, we also did excise all any inflamed synovial type tissue. Thick synovial tissue biopsies from 3 different locations do send for culture. The knee was copiously irrigated with pulsatile lavage, antibiotic solution with bacitracin now for 3 liters and then used the Versajet throughout the knee area debriding the soft tissues further. After that was completed, we used a small curette around the edges of the implant bone interface area and we removed some heterotopic bone around the anterior tibia, which was required first to be able to take out the tibial component and we did that before tibial polyethylene was resected. I did tap test both the femoral and the tibial components and stressed the junctions there and they were completely solidly fixed. Patella was also solidly fixed. At this time, I used a Betadine scrub brush to scrub the surfaces of the tibia and the femoral components to remove any potential glycocalix. Then, the knee was copiously irrigated with antibiotic solution with bacitracin again. At this time, we went ahead and did a trial reduction and the size 12 insert, which was the previous insert size in the knee was placed and the patient had good stability extension, flexion, and there was appropriate soft tissue tension. The trial was removed and the knee had a 3-minute Betadine soak performed with the standard solution. Then, this was irrigated out the joint, then we went ahead and copiously irrigated out the joint again with pulsatile lavage antibiotic solution with bacitracin. All gloves were changed and clean instruments were used as we exposed the knee and placed in the polyethylene component, which was the NexGen legacy posterior stabilized prolonged highly cross-linked polyethylene LPS flex articular surface 12 mm height polyethylene for the size EF femur to be used with a 4 tibial plate. This was inserted uneventfully with good stability. At this time, we did further copious irrigation with antibiotic solution so we had total of 9 liters irrigation. Then, 2 drains were brought out laterally, placed deep into the joint and then we placed Stimulan beads that were loaded with vancomycin powder. These were placed into the medial and lateral gutters, suprapatellar pouch area, and then I went to close the quadriceps tendon and medial retinaculum with interrupted [id number] antibacterial resistant Vicryl sutures with antibiotic resistant suture material. The knee was taken through full range of motion, repaired and secured. Then, we irrigated out the subcutaneous tissues again and then placed 2 more Hemovac drains in that plane and then went ahead and placed more Stimulan beads in that area. Then, the subcutaneous tissues were closed with the #1 Vicryl antibacterial resistance suture material and 2-0 Vicryl antibacterial resistant suture material and the skin was closed with interrupted 3-0 nylon sutures due to her metal allergy. At this time, a superficial wound VAC was applied by my physician clinical lab assistant. Tourniquet was let down prior to the subcutaneous and skin closure and patient had about 30 mL of blood loss.There was increased difficulty due to morbid obesity BMI 51.5. She tolerated the procedure well with no complications noted at this time. LEONIE Alegria was my operator assistant i cementing. He functioned as operator assistant i cementing for the entire procedure. He assisted in patient positioning, soft tissue retraction, and assisted in the subcutaneous and skin closure, applied the superficial wound VAC and will participate in the postoperative care of the patient. I attest to the content of the Intraoperative Record and any orders documented therein. Any exceptions are noted below. LAURA
[2017-10-17] MEDS: OXYCODONE HCL IR 5 MG TAB (IMMEDIATE RELEASE) PO PRN ×4 (01:32→21:20)
[2017-10-17 03:20] VITALS: BP 109/67; PULSE 68; TEMP 36.8; O2SAT 97
[2017-10-17] MEDS: SODIUM CHLORIDE 0.9% 1000ML 1,000 ML IV SCH (03:34)
[2017-10-17 05:45] LABS: HEMATOCRIT 30.7 % (37-47); HEMOGLOBIN 9.4 g/dL (12.0-16.0); MEAN CORPUSCULAR HGB CONC 30.6 g/dl (32-36); MEAN PLATELET VOLUME 8.5 fL (7.4-10.4); PLATELET COUNT 196 K/uL (130-400); RED CELL DISTRIBUTION WIDTH CV 14.3 % (11.5-14.5); RED CELL DISTRIBUTION WIDTH SD 44.4 fL (36.4-46.3); WHITE BLOOD COUNT 4.63 K/uL (4.8-10.8)
[2017-10-17] MEDS: LEVOTHYROXINE 75 MCG TAB PO SCH (06:16)
[2017-10-17] MEDS: ACETAMINOPHEN 500 MG TAB PO SCH ×3 (06:17→21:00)
[2017-10-17 06:20] LABS: CALCIUM 8.2 mg/dl (8.5-10.1); CREATININE 0.9 mg/dl (0.60-1.20); POTASSIUM 4.3 mmol/L (3.5-5.1)
[2017-10-17 07:31] VITALS: BP 127/69; PULSE 66; TEMP 36.8; O2SAT 96
--- NOTE | 2017-10-17 07:50 | Orthopedic Progress Note ---
Orthopedic Progress Note Date of Service Oct 17, 2017. Subjective Post OP Day: 1 Reports: feeling well, Denies: chest pain, SOB, nausea / vomiting, light headedness, calf pain Objective calves soft nontender, N/V intact, capillary refill less than 2 sec., dressing C /D/I (PREVENA), A&O x3, toes mobile, hemovac drainage (#1 50/50 CC PER SHIFT; # 2 150/100 CC PER SHIFT) Date Time Temp Pulse Resp B/P (MAP) Pulse Ox O2 Delivery O2 Flow Rate FiO2 10/17/17 07:31 36.8 66 18 127/69 (88) 96 Room Air 10/17/17 03:20 36.8 68 17 109/67 (81) 97 Room Air 10/17/17 00:50 Room Air 10/16/17 23:29 37.1 79 16 145/77 (99) 94 Room Air 10/16/17 20:44 80 168/83 (111) 10/16/17 19:48 37.0 70 18 143/79 (100) 94 Room Air 10/16/17 17:10 36.6 62 18 152/83 (106) 95 Room Air 10/16/17 16:01 36.7 66 18 155/74 (101) 96 Room Air 10/16/17 15:45 99 Nasal Cannula 3.0 10/16/17 15:13 36.6 59 18 165/81 (109) 99 Nasal Cannula 3.0 10/16/17 14:31 59 16 172/82 (112) 97 Nasal Cannula 3.0 10/16/17 14:00 Nasal Cannula 3.0 10/16/17 14:00 Nasal Cannula 3.0 10/16/17 14:00 36.4 59 15 162/80 (107) 93 Nasal Cannula 3.0 10/16/17 13:45 135/70 10/16/17 13:44 36.1 62 18 135/70 97 Room Air 10/16/17 13:43 61 24 10/16/17 13:43 61 24 97 10/16/17 13:40 134/72 10/16/17 13:38 59 21 10/16/17 13:38 59 21 97 10/16/17 13:35 135/69 10/16/17 13:33 57 21 96 10/16/17 13:33 58 21 6/29/18 13:30 139/64 10/16/17 13:28 61 23 96 10/16/17 13:28 60 23 10/16/17 13:25 140/77 10/16/17 13:23 65 22 10/16/17 13:23 65 22 96 10/16/17 13:20 131/76 10/16/17 13:18 65 22 10/16/17 13:18 65 22 96 10/16/17 13:15 139/65 10/16/17 13:13 66 23 10/16/17 13:13 66 23 96 10/16/17 13:10 129/79 10/16/17 13:08 66 23 10/16/17 13:08 66 23 97 10/16/17 13:05 136/69 10/16/17 13:03 68 22 96 10/16/17 13:03 68 22 10/16/17 13:00 143/70 10/16/17 12:58 68 23 10/16/17 12:58 68 23 97 10/16/17 12:55 141/78 10/16/17 12:53 71 22 97 10/16/17 12:53 70 22 10/16/17 12:50 142/76 10/16/17 12:48 72 22 96 10/16/17 12:48 72 22 10/16/17 12:47 151/79 10/16/17 12:43 76 24 96 10/16/17 12:43 76 24 10/16/17 12:38 36.1 73 16 151/79 96 Mask 9 Laboratory Results 24 Hours: Test 10/17/17 05:25 Hematocrit 30.7 % Hemoglobin 9.4 g/dL Assessment & Plan Assessment: POD#1 SP I&D LEFT TKA MORBID OBESITY Plan: PT/OT DVT PROPH- XARELTO, CHRONIC PLAVIX PAIN MANAGEMENT MEDICAL MANAGEMENT FOLLOW CULTURES- -WILL NEED PICC LINE, CONSENT OBTAINED TODAY - CONTINUE IV VANCO UNTIL SENSITIVITIES FINAL - WILL NEED INSURANCE APPROVAL ONCE FINALIZED, CM TO MANAGE. LIKELY STAY UNTIL THURSDAY - ID ON BOARD. WILL AWAIT RECOMMENDATIONS DC PLANNING- HOME WITH HOME PT, HOME IVS. DC DRESSING IN AM. MAY KEEP HEMOVAC PENDING OUTPUT I have seen and examined the patient, and agree with LEONIE Abbasi's Assessment and Plan. PICC consent obtained. I am covering Orthopedic Surgery call for Dr. Hermosillo, who is unavailable. Navjot Long MD
[2017-10-17] MEDS: CeleBREX 200 MG CAP PO SCH (08:42)
[2017-10-17] MEDS: CALCIUM 600MG + VIT D 400 IU TAB PO SCH (08:42)
[2017-10-17] MEDS: DOCUSATE SODIUM 100 MG CAP PO SCH ×2 (08:43→20:59)
[2017-10-17] MEDS: RIVAROXABAN 10 MG TAB PO SCH (08:43)
[2017-10-17] MEDS: HYDROCHLOROTHIAZIDE 25 MG TAB PO SCH (08:44)
[2017-10-17] MEDS: VALSARTAN 80 MG TAB PO SCH (08:44)
[2017-10-17] MEDS: METOPROLOL TARTRATE 100 MG TAB PO SCH ×2 (08:45→21:01)
[2017-10-17] MEDS: FUROSEMIDE 40 MG TAB PO SCH (08:45)
[2017-10-17] MEDS: MULTIVITAMIN TAB PO SCH (08:46)
[2017-10-17] MEDS: PANTOprazole SOD 40 MG TAB PO SCH (08:46)
[2017-10-17] MEDS: INSULIN ASPART 100 UNITS/ML 3 ML PEN SC SCH ×4 (08:56→21:02)
[2017-10-17] MEDS ORDERED: PANTOprazole SOD 40 MG TAB PO SCH (09:00)
[2017-10-17] MEDS ORDERED: CLOPIDOGREL BISULFATE 75 MG TAB PO SCH (09:00)
[2017-10-17] MEDS: VANCOMYCIN IV 1,750 MG in SODIUM CHLORIDE 0.9% 500ML 500 ML IV SCH (09:14)
--- NOTE | 2017-10-17 11:12 | DIAGNOSTIC IMAGING REPORT ---
CHEST ONE VIEW PORTABLE CLINICAL HISTORY: right picc tip placement COMPARISON STUDY: Chest radiograph January 18, 2010. FINDINGS: The tip of the right PICC projects over the mid SVC. There is no pneumothorax or pleural effusion. There is no evidence for pulmonary edema. Note is made of mild cardiomegaly. IMPRESSION: Tip of right PICC projects over the mid SVC. Electronically signed by: Wilfredo Saunders M.D. 10/17/2017 11:11 AM Dictated Date/Time: 10/17/2017 11:10 AM
[2017-10-17 11:13] VITALS: BP 130/68; PULSE 56; TEMP 36.8; O2SAT 97
[2017-10-17 15:17] VITALS: BP 108/65; PULSE 50; TEMP 36.8; O2SAT 95
--- NOTE | 2017-10-17 16:08 | Hospitalist Progress Note ---
Hospitalist Progress Note Date of Service Oct 17, 2017. Subjective Pt evaluation today including: conversation w/ patient Patient feeling well. Pain in the knee is controlled. She is tolerating p.o. without nausea or vomiting. She denies abdominal pain. She moved her bowels yesterday prior to the surgery. She is making urine. She denies chest pain or shortness of breath. All Other Systems: Reviewed and Negative Objective Vital Signs Date Time Temp Pulse Resp B/P (MAP) Pulse Ox O2 Delivery O2 Flow Rate FiO2 10/17/17 15:17 36.8 50 18 108/65 (79) 95 Room Air 10/17/17 11:13 36.8 56 18 130/68 (88) 97 Room Air 10/17/17 09:34 Room Air 10/17/17 07:31 36.8 66 18 127/69 (88) 96 Room Air 10/17/17 03:20 36.8 68 17 109/67 (81) 97 Room Air 10/17/17 00:50 Room Air 10/16/17 23:29 37.1 79 16 145/77 (99) 94 Room Air 10/16/17 20:44 80 168/83 (111) 10/16/17 19:48 37.0 70 18 143/79 (100) 94 Room Air 10/16/17 17:10 36.6 62 18 152/83 (106) 95 Room Air Physical Exam General Appearance: WD/WN, no apparent distress, + obese (Morbidly) Eyes: normal inspection, sclerae normal ENT: hearing grossly normal Neck: trachea midline Respiratory/Chest: lungs clear, normal breath sounds, no respiratory distress, no accessory muscle use Cardiovascular: regular rate, rhythm, no gallop, no murmur, + pertinent finding (Trace pitting edema of the ankles bilaterally) Abdomen: normal bowel sounds, non tender, soft Extremities: + pertinent finding (Left lower extremity in dressing and Ruben wrap not removed, Hemovac draining blood) Neurologic/Psychiatric: alert, normal mood/affect, oriented x 3 Skin: normal color, warm/dry, no rash Laboratory Results Last 24 Hours Test 10/16/17 17:11 10/16/17 20:36 10/17/17 05:25 10/17/17 08:00 Bedside Glucose 213 mg/dl 153 mg/dl 155 mg/dl White Blood Count 4.63 K/uL Red Blood Count 3.61 M/uL Hemoglobin 9.4 g/dL Hematocrit 30.7 % Mean Corpuscular Volume 85.0 fL Mean Corpuscular Hemoglobin 26.0 pg Mean Corpuscular Hemoglobin Concent 30.6 g/dl RDW Standard Deviation 44.4 fL RDW Coefficient of Variation 14.3 % Platelet Count 196 K/uL Mean Platelet Volume 8.5 fL Sodium Level 138 mmol/L Potassium Level 4.3 mmol/L Chloride Level 106 mmol/L Carbon Dioxide Level 28 mmol/L Anion Gap 4.0 mmol/L Blood Urea Nitrogen 12 mg/dl Creatinine 0.90 mg/dl Est Creatinine Clear Calc Drug Dose 81.7 ml/min Estimated GFR () 77.2 Estimated GFR (Non- 66.6 BUN/Creatinine Ratio 13.5 Random Glucose 121 mg/dl Calcium Level 8.2 mg/dl Thyroid Stimulating Hormone (TSH) 0.558 uIu/ml Test 10/17/17 12:05 Bedside Glucose 175 mg/dl Assessment and Plan This patient is a 67 y/o female who was admitted on 10/16 s/p L knee I&D, Synovectomy, Excision Heterotopic Bone, Tibial Polyethylene Exchange, Application of Stimulan Beads,and superficial wound vac application with Dr. Hermosillo for left septic knee. Previously had poly- exchange in 2009 after coag negative staph infection. Left septic knee joint: s/p procedure as above-stable. Gram stains and cultures of the knee are still negative. Apparently aspiration was done prior to admission and was positive for infection. Palpation laboratory studies showed she had a CRP of 96, a sed rate of 108. She also was complaining of fevers between 100 and 101 degrees. On 10/11/2017 in the office, a sterile procedure of aspirating fluid from her knee was sent off to [facility] and that was positive for infection as per orthopedic H&P, however I am not clear on which bacteria this was. -Postoperative management as per orthopedics -Continue IV vancomycin while awaiting cultures as per ID-likely needs 6-8 weeks of IV antibiotics-had PICC line placed today -Continue DVT proph with Xarelto 10 mg daily-would recommend holding Plavix while on Xarelto -Planning for home with PT Acute blood loss anemia-postoperatively hemoglobin with slight drop down to 9.4 from 11.9 -No need for transfusion -Follow CBC in the morning HTN: stable. continue home meds of metoprolol, valsartan, HCTZ, and Lasix -Discontinued IV fluids this morning -Was on Plavix for primary prevention-recommend holding this while on Xarelto and then restarting when Xarelto is completed-discussed with the patient DMII, not on long-term insulin, fairly well controlled-hemoglobin A1c 7.4% -Holding home meds of glimepiride, metformin, Actos -Continue Accu-Cheks and sliding scale insulin Hypothyroidism-TSH here is normal -: continue home dose levothyroxine OA:-Continues on Celebrex Disposition-to home with IV antibiotics in 1-2 days after wound cultures resulted and home antibiotic therapy is set up Full code Thank you for the consultation. The hospitalist service will sign off at this time as the patient is doing very well. Please feel free to reconsult if any acute issues arise.
--- NOTE | 2017-10-17 16:38 | Consultant Recommendations ---
Emergency Room Tech Recommendations Date of Service Oct 17, 2017. Emergency Room Tech Recommendations Would recommend holding Plavix while on Xarelto HTN: stable. continue home meds of metoprolol, valsartan, HCTZ, and Lasix -Was on Plavix for primary prevention-recommend holding this while on Xarelto and then restarting when Xarelto is completed-discussed with the patient DMII, not on long-term insulin, fairly well controlled-hemoglobin A1c 7.4% -Holding home meds of glimepiride, metformin, Actos and can be restarted upon discharge Hypothyroidism-TSH here is normal -: continue home dose levothyroxine OA:-Continues on Celebrex Follow-up with primary care provider within 1 week after discharge
[2017-10-17 21:03] VITALS: PULSE 67
[2017-10-17 23:06] VITALS: BP 143/73; PULSE 68; TEMP 37; O2SAT 93
[2017-10-18] MEDS ORDERED: VANCOMYCIN TROUGH ONE (01:30)
[2017-10-18] MEDS: VANCOMYCIN IV 1,750 MG in SODIUM CHLORIDE 0.9% 500ML 500 ML IV SCH ×2 (01:37→17:36)
[2017-10-18 05:45] LABS: HEMATOCRIT 28.8 % (37-47); HEMOGLOBIN 9.3 g/dL (12.0-16.0); MEAN CELL VOLUME 83.5 fL (80-100); MEAN CORPUSCULAR HGB CONC 32.3 g/dl (32-36); MEAN PLATELET VOLUME 8.6 fL (7.4-10.4); PLATELET COUNT 189 K/uL (130-400); RED CELL DISTRIBUTION WIDTH CV 14.4 % (11.5-14.5); RED CELL DISTRIBUTION WIDTH SD 43.8 fL (36.4-46.3); WHITE BLOOD COUNT 4.55 K/uL (4.8-10.8)
[2017-10-18] MEDS: ACETAMINOPHEN 500 MG TAB PO SCH ×3 (05:55→20:50)
[2017-10-18] MEDS: LEVOTHYROXINE 75 MCG TAB PO SCH (05:56)
[2017-10-18 06:10] LABS: CALCIUM 8.5 mg/dl (8.5-10.1); CREATININE 1.02 mg/dl (0.60-1.20); POTASSIUM 4.1 mmol/L (3.5-5.1)
--- NOTE | 2017-10-18 07:30 | Orthopedic Progress Note ---
Orthopedic Progress Note Date of Service Oct 18, 2017. Subjective Post OP Day: 2 Reports: feeling well, Denies: chest pain, SOB, nausea / vomiting, light headedness, calf pain Objective calves soft nontender, N/V intact, capillary refill less than 2 sec., dressing C /D/I (PREVENA), A&O x3, toes mobile Date Time Temp Pulse Resp B/P (MAP) Pulse Ox O2 Delivery O2 Flow Rate FiO2 10/18/17 00:05 Room Air 10/17/17 23:06 37.0 68 16 143/73 (96) 93 Room Air 10/17/17 21:03 67 10/17/17 15:20 Room Air 10/17/17 15:17 36.8 50 18 108/65 (79) 95 Room Air 10/17/17 11:13 36.8 56 18 130/68 (88) 97 Room Air 10/17/17 09:34 Room Air 10/17/17 07:31 36.8 66 18 127/69 (88) 96 Room Air Laboratory Results 24 Hours: Test 10/18/17 05:12 Hematocrit 28.8 % Hemoglobin 9.3 g/dL Additional Notes: GRAM STAIN Final 10/17/17-0845 RESULT RARE MONONUCLEATED CELLS RARE POLYS NO ORGANISMS SEEN OR AER/DELFINA CULT Preliminary 10/17/17-1330 NO GROWTH TO DATE. Assessment & Plan Assessment: POD#2 SP I&D LEFT TKA MORBID OBESITY Plan: PT/OT DVT PROPH- XARELTO, CHRONIC PLAVIX PAIN MANAGEMENT MEDICAL MANAGEMENT FOLLOW CULTURES- -PICC LINE PLACED - CONTINUE IV VANCO UNTIL SENSITIVITIES FINAL - WILL NEED INSURANCE APPROVAL ONCE FINALIZED, CM TO MANAGE. LIKELY STAY UNTIL THURSDAY - ID ON BOARD. WILL AWAIT RECOMMENDATIONS DC PLANNING- HOME WITH HOME PT, HOME IVS. I have seen and examined the patient, and agree with LEONIE Abbasi's Assessment and Plan. Gram stain and cultures negative so far. I am covering Orthopedic Surgery call for Dr. Hermosillo, who is unavailable. Navjot Long MD
[2017-10-18 07:44] VITALS: BP 186/44; PULSE 77; TEMP 37.2; O2SAT 94
[2017-10-18] MEDS: OXYCODONE HCL IR 5 MG TAB (IMMEDIATE RELEASE) PO PRN ×3 (07:55→23:24)
[2017-10-18] MEDS: RIVAROXABAN 10 MG TAB PO SCH (07:58)
[2017-10-18 08:54] VITALS: BP 169/75; PULSE 70
--- NOTE | 2017-10-18 08:54 | Pharmacy Progress Note ---
Pharmacy Abx Dose Short Note Date of Service Oct 18, 2017. Assessment & Plan Assessment 67 year old female receiving Vancomycin for treatment of joint infection Day # 3 of antimicrobial therapy. Plan Vancomycin * Trough level of 17.5 mcg/mL is therapeutic. * Continue dose of 1750 mg IV every 16 hours (kidney function remains stable) * Goal trough level for joint infection : 15 to 20 mcg/mL * Will order a trough level if patient remains in the hospital for another couple days, or if her kidney function or condition significantly changes. Pharmacy will continue to follow and will adjust dose/frequency as necessary. Thank you.
[2017-10-18] MEDS: CALCIUM 600MG + VIT D 400 IU TAB PO SCH (09:01)
[2017-10-18] MEDS: CeleBREX 200 MG CAP PO SCH (09:02)
[2017-10-18] MEDS: VALSARTAN 80 MG TAB PO SCH (09:02)
[2017-10-18] MEDS: HYDROCHLOROTHIAZIDE 25 MG TAB PO SCH (09:03)
[2017-10-18] MEDS: PANTOprazole SOD 40 MG TAB PO SCH (09:04)
[2017-10-18] MEDS: FUROSEMIDE 40 MG TAB PO SCH (09:04)
[2017-10-18] MEDS: MULTIVITAMIN TAB PO SCH (09:04)
[2017-10-18] MEDS: DOCUSATE SODIUM 100 MG CAP PO SCH ×2 (09:11→20:50)
[2017-10-18] MEDS: INSULIN ASPART 100 UNITS/ML 3 ML PEN SC SCH ×4 (09:11→20:51)
[2017-10-18] MEDS: METOPROLOL TARTRATE 100 MG TAB PO SCH ×2 (09:42→20:51)
[2017-10-18 11:02] VITALS: BP 148/72; PULSE 61; TEMP 36.9; O2SAT 94
[2017-10-18] MEDS ORDERED: ACETAMINOPHEN 500 MG TAB ONE (13:45)
[2017-10-18 15:25] VITALS: BP 117/63; PULSE 54; TEMP 36.8; O2SAT 95
[2017-10-18 20:57] VITALS: PULSE 63
[2017-10-18 23:07] VITALS: BP 157/72; PULSE 67; TEMP 37; O2SAT 96
[2017-10-19] MEDS: LEVOTHYROXINE 75 MCG TAB PO SCH (05:33)
[2017-10-19] MEDS: ACETAMINOPHEN 500 MG TAB PO SCH ×3 (05:33→20:47)
[2017-10-19 05:38] LABS: HEMATOCRIT 30.8 % (37-47); HEMOGLOBIN 9.6 g/dL (12.0-16.0); MEAN CELL VOLUME 83.9 fL (80-100); MEAN CORPUSCULAR HEMOGLOBIN 26.2 pg (25-34); MEAN CORPUSCULAR HGB CONC 31.2 g/dl (32-36); MEAN PLATELET VOLUME 8.9 fL (7.4-10.4); NUCLEATED RED BLOOD CELL ABS 0.02 K/uL (0-0); PLATELET COUNT 209 K/uL (130-400); RED CELL DISTRIBUTION WIDTH CV 14.3 % (11.5-14.5); RED CELL DISTRIBUTION WIDTH SD 43.5 fL (36.4-46.3)
[2017-10-19 06:11] LABS: CALCIUM 9.7 mg/dl (8.5-10.1); CREATININE 1.09 mg/dl (0.60-1.20); POTASSIUM 3.9 mmol/L (3.5-5.1)
[2017-10-19 07:02] VITALS: BP 123/70; PULSE 73; TEMP 36.6; O2SAT 92
[2017-10-19] MEDS: DOCUSATE SODIUM 100 MG CAP PO SCH ×2 (07:11→20:47)
[2017-10-19] MEDS: PANTOprazole SOD 40 MG TAB PO SCH (07:11)
[2017-10-19] MEDS: MULTIVITAMIN TAB PO SCH (07:11)
[2017-10-19] MEDS: RIVAROXABAN 10 MG TAB PO SCH (07:11)
[2017-10-19] MEDS: CALCIUM 600MG + VIT D 400 IU TAB PO SCH (07:12)
[2017-10-19] MEDS: CeleBREX 200 MG CAP PO SCH (07:12)
[2017-10-19] MEDS: VALSARTAN 80 MG TAB PO SCH (07:12)
[2017-10-19] MEDS: HYDROCHLOROTHIAZIDE 25 MG TAB PO SCH (07:12)
[2017-10-19] MEDS: METOPROLOL TARTRATE 100 MG TAB PO SCH ×2 (07:13→20:47)
[2017-10-19] MEDS: FUROSEMIDE 40 MG TAB PO SCH (07:13)
[2017-10-19] MEDS: OXYCODONE HCL IR 5 MG TAB (IMMEDIATE RELEASE) PO PRN ×2 (07:18→19:04)
--- NOTE | 2017-10-19 07:35 | Orthopedic Progress Note ---
Orthopedic Progress Note Date of Service Oct 19, 2017. Subjective Post OP Day: 3 Reports: feeling well, Denies: complaints Objective calves soft nontender, N/V intact, dressing C/D/I (Prevena intact6), A&O x3, toes mobile Date Time Temp Pulse Resp B/P (MAP) Pulse Ox O2 Delivery O2 Flow Rate FiO2 10/19/17 07:02 36.6 73 16 123/70 (87) 92 Room Air 10/18/17 23:25 Room Air 10/18/17 23:07 37.0 67 16 157/72 (100) 96 Room Air 10/18/17 20:57 63 10/18/17 15:25 36.8 54 18 117/63 (81) 95 Room Air 10/18/17 15:20 Room Air 10/18/17 11:02 36.9 61 18 148/72 (97) 94 Room Air 10/18/17 08:54 70 169/75 (106) 10/18/17 07:50 Room Air 10/18/17 07:44 37.2 77 18 186/44 (91) 94 Room Air Laboratory Results 24 Hours: Test 10/19/17 05:08 Hematocrit 30.8 % Hemoglobin 9.6 g/dL Assessment & Plan Assessment: POD#3 SP I&D LEFT TKA MORBID OBESITY Plan: PT/OT DVT PROPH- XARELTO, CHRONIC PLAVIX (WHICH HAS BEEN HELD AT THIS TIME, RESTART WHEN XARELTO IS DC'D) PAIN MANAGEMENT MEDICAL MANAGEMENT FOLLOW CULTURES- -PICC LINE PLACED - CONTINUE IV VANCO UNTIL SENSITIVITIES FINAL - CM FINALIZING HOME HEALTH NURSING/ IV MEDICATIONS - ID ON BOARD. WILL AWAIT RECOMMENDATIONS DC PLANNING- HOME WITH HOME PT, HOME IVS. WHEN FINALIZED BY CM Inhouse Planning Pain Management: Celebrex, Ultram, PO Tylenol, Oxy IR DVT Prophylaxis: TEDs, SCDs, Xarelto Discharge Planning Discharge Planning: home with home health
--- NOTE | 2017-10-19 07:36 | Anesthesiology Progress Note ---
Anesthesia Post Op Note Date & Time Oct 19, 2017 at 07:35 Vital Signs Pain Intensity: 2.0 Vital Signs Past 12 Hours Date Time Temp Pulse Resp B/P (MAP) Pulse Ox O2 Delivery O2 Flow Rate FiO2 10/19/17 07:10 Room Air 10/19/17 07:02 36.6 73 16 123/70 (87) 92 Room Air 10/18/17 23:25 Room Air 10/18/17 23:07 37.0 67 16 157/72 (100) 96 Room Air 10/18/17 20:57 63 Notes Mental Status: alert / awake / arousable, participated in evaluation Pt Amnestic to Procedure: Yes Nausea / Vomiting: adequately controlled Pain: adequately controlled Airway Patency, RR, SpO2: stable & adequate BP & HR: stable & adequate Hydration State: stable & adequate Anesthetic Complications: no major complications apparent
--- NOTE | 2017-10-19 07:42 | Discharge Instructions ---
Discharge Instructions Date of Service Oct 19, 2017. Admission Reason for Admission: Left Knee Septic Total Knee Arthroplasty Discharge Discharge Diagnosis / Problem: Left Septic TKA Discharge Goals Goal(s): Decrease discomfort, Improve function, Increase independence Activity Recommendations Activity Limitations: per Instructions/Follow-up section Weightbearing Status: Left weightbearing (as tolerated) . Instructions / Follow-Up Instructions / Follow-Up ACTIVITY RECOMMENDATIONS: SELF CARE INSTRUCTIONS AFTER TOTAL KNEE REPLACEMENT A. You may need to continue a physical therapy program after discharge from the hospital. There are several options available to you. Your doctor will assist you in selecting the best one for you. 1. An out-patient facility 2 to 3 times a week for therapy or home therapy. 2. Continue working on all exercises taught to you in the hospital. Your goals should be to increase bending of your knee to 90 degrees and beyond and to fully straighten your knee. B. You may progress at your own pace from walking with a walker or crutches to a cane; then to no assistive devices. C. Make walking a part of your daily routine. Be up as much as comfortable with rest periods throughout the day. Rest with leg elevation is very important. Use the ice wrap frequently for the first 3-4 weeks. D. There are no restrictions on activities. You may ride in a car, shop, participate in room service food server and all social activities. E. Wear the long elastic stockings (VICTORIANO hose) 20 hours a day for 2 weeks after surgery. They can be removed several times a day for laundering and for a bath. F. You may shower, no tub baths until cleared by your doctor. SPECIAL CARE INSTRUCTIONS: VERY IMPORTANT TO READ AND REVIEW A. There are a few signs you need to watch for after you are home. Call [facility] [place] if you notice any of the followin. Increased severe knee pain. Some pain is expected especially when you exercise. 2. Increased swelling in your leg or knee; pain or swelling of the calf muscle in either lower leg. 3. Any fluid drainage from the incision. 4. Shortness of breath or chest pain. B. Please call [facility] at if you have any concerns or questions about your operation or recovery. The doctor or his nurse will return your call promptly. C. You must take antibiotics before dental work, bladder, bowel or other surgery. Your doctor will provide you with a permanent care to carry describing this precaution. IMPORTANT: * REMEMBER TO TAKE ASPIRIN, 81 MG, TWICE DAILY FOR 4 WEEKS UNLESS OTHERWISE DIRECTED. THIS IS YOUR BLOOD THINNER. * HIGH RISK PATIENTS MAY BE PRESCRIBED A STRONGER BLOOD THINNER. THIS WILL BE PROVIDED AT DISCHARGE. * CALL IF INCREASED PAIN, REDNESS, DRAINAGE OR FEVER GREATER THAT 101. * WEAR VICTORIANO HOSE 20 HOURS PER DAY FOR 2 WEEKS. * Prevena- This is a large suction dressing covering your incision. This will help pull any excess drainage from the wound and allow your incision to heal properly. You may shower with this if you can keep the unit outside of the shower. If any bleeding or leakage is noted please call your doctor's office. This will remain on your incision for 7 days and then should be removed. This can be done yourself or by the home nursing staff if applicable. The entire unit is disposable once removed. Once removed, keep incision clean and dry. If redness or drainage is noted, please call your surgeon. * YOU WILL BE ON IV ANTIBIOTICS DAILY. YOU MAY REQUIRE CERTAIN BLOODWORK THAT WILL BE DRAWN BY YOUR HOME HEALTH SERVICE. THESE RESULTS WILL BE SENT TO DR DORANTES. HE WILL CHANGE/ ADJUST YOUR ANTIBIOTIC NEEDED. FOLLOW UP VISIT: If appointment is not already scheduled: Please call [facility] [place] to make a follow-up appointment for 2 weeks after your surgery at . Current Hospital Diet Patient's current hospital diet: Diabetes Type 2 Diet Discharge Diet Recommended Diet: Diabetes Type 2 Diet Procedures Procedures Performed: Left Knee Incision and Drainage, Synovectomy, Excision Heterotopic Bone, Tibial Polyethylene Exchange, Application of Stimulan Beads,superficial wound vac application Pending Studies Studies pending at discharge: yes List of pending studies: final cultures Laboratory Results Hemoglobin A1c Test 10/16/17 07:39 Range/Units Estimated Average Glucose 166 mg/dl Hemoglobin A1c 7.4 H 4.5-5.6 % Medical Emergencies . Who to Call and When: Medical Emergencies: If at any time you feel your situation is an emergency, please call 911 immediately. . Non-Emergent Contact Non-Emergency issues call your: Surgeon Call Non-Emergent contact if: temperature is above 101.5, your pain is not controlled, your pain is worsening, wound has increased drainage, wound has increased redness . "Provider Documentation" section prepared by Jaswinder Garrison. . Carpet Cutter Recommendations Carpet Cutter Recommendations: Would recommend holding Plavix while on Xarelto HTN: stable. continue home meds of metoprolol, valsartan, HCTZ, and Lasix -Was on Plavix for primary prevention-recommend holding this while on Xarelto and then restarting when Xarelto is completed-discussed with the patient DMII, not on long-term insulin, fairly well controlled-hemoglobin A1c 7.4% -Holding home meds of glimepiride, metformin, Actos and can be restarted upon discharge Hypothyroidism-TSH here is normal -: continue home dose levothyroxine OA:-Continues on Celebrex Follow-up with primary care provider within 1 week after discharge [place] Drug Monitoring Program Search Results: patient reviewed within database, no issues identified
[2017-10-19] MEDS: INSULIN ASPART 100 UNITS/ML 3 ML PEN SC SCH ×4 (07:48→20:50)
[2017-10-19] MEDS: VANCOMYCIN IV 1,750 MG in SODIUM CHLORIDE 0.9% 500ML 500 ML IV SCH (11:16)
--- NOTE | 2017-10-19 11:16 | Infectious Disease Progress Nt ---
Progress Note Date of Service Oct 19, 2017. Subjective Pt evaluation today including: conversation w/ patient, physical exam, chart review, lab review, review of studies, conversation w/ project consultant, review of inpatient medication list Patient offering no new complaints today. Remains afebrile. Tolerating vancomycin without apparent difficulty. Operative cultures remain negative. All Other Systems: Reviewed and Negative Medications Current Inpatient Medications Medications (Trade) Dose Ordered Sig/Pedro Route Start Time Stop Time Status Last Admin Dose Admin Celecoxib (CeleBREX CAP) 200 mg QAM PO 10/17/17 09:00 11/16/17 08:59 10/19/17 07:12 200 MG Furosemide (Lasix Tab) 40 mg QAM PO 10/17/17 09:00 11/16/17 08:59 10/19/17 07:13 40 MG Levothyroxine Sodium (Synthroid Tab) 75 mcg DAILYBB PO 10/17/17 06:00 11/16/17 05:59 10/19/17 05:33 75 MCG Metoprolol Tartrate (Lopressor Tab) 100 mg QPM PO 10/16/17 21:00 11/15/17 20:59 10/18/17 20:51 100 MG Metoprolol Tartrate (Lopressor Tab) 200 mg QAM PO 10/17/17 09:00 11/16/17 08:59 10/19/17 07:13 200 MG Pantoprazole Sodium (Protonix Tab) 40 mg QAM PO 10/17/17 09:00 11/16/17 08:59 10/19/17 07:11 40 MG Valsartan (Diovan Tab) 80 mg QAM PO 10/17/17 09:00 11/16/17 08:59 10/19/17 07:12 80 MG Calcium/Vitamin D (Caltrate Plus Tab) 1 tab QAM PO 10/17/17 09:00 11/16/17 08:59 10/19/17 07:12 1 TAB Oxycodone HCl (Roxicodone Immediate Rel Tab) 1 TABLET FOR PAIN RATING... Q4H PRN PO 10/16/17 12:45 10/30/17 12:44 10/19/17 07:18 10 MG Morphine Sulfate (MoRPHine SULFATE INJ) as needed Q2H PRN IV 10/16/17 12:45 10/30/17 12:44 Acetaminophen (Tylenol Tab) 1,000 mg Q8H PO 10/16/17 22:00 11/15/17 21:59 10/19/17 05:33 1,000 MG Magnesium Hydroxide (Milk Of Magnesia Susp) 30 ml Q6H PRN PO 10/16/17 12:45 11/15/17 12:44 Bisacodyl (Dulcolax Supp) 10 mg DAILY PRN [place] 10/16/17 12:45 11/15/17 12:44 Sodium Biphosphate/ Sodium Phosphate (Fleet Enema) 132 ml DAILY PRN [place] 10/16/17 12:45 11/15/17 12:44 Docusate Sodium (coLACE CAP) 100 mg BID PO 10/16/17 21:00 11/15/17 20:59 10/19/17 07:11 100 MG Diphenhydramine HCl (Benadryl Cap) 25 mg Q8H PRN PO 10/16/17 12:45 11/15/17 12:44 Zolpidem Tartrate (Ambien Tab) 5 mg HSZ PRN PO 10/16/17 12:45 11/15/17 12:44 Multivitamins (Multivitamin Tab) 1 tab QAM PO 10/17/17 09:00 11/16/17 08:59 10/19/17 07:11 1 TAB Ondansetron HCl (Zofran Inj) 4 mg Q6H PRN IV 10/16/17 12:45 11/15/17 12:44 Metoclopramide HCl (Reglan Inj) 10 mg Q6H PRN IV 10/16/17 12:45 11/15/17 12:44 Tramadol HCl (Ultram Tab) 1 tablet for pain rating... Q4H PRN PO 10/16/17 12:45 11/15/17 12:44 10/16/17 22:17 100 MG Rivaroxaban (Xarelto Tab) 10 mg DAILY@0800 PO 10/17/17 08:00 10/29/17 07:59 10/19/17 07:11 10 MG Vancomycin HCl 1750 mg/Sodium Chloride 535 ml @ 200 mls/hr Q16H IV 10/16/17 18:00 10/26/17 17:59 10/18/17 17:36 200 MLS/HR Vancomycin HCl (Consult) 1 ea UD PRN N/A 10/16/17 12:45 11/15/17 12:44 Insulin Aspart (novoLOG ASPART) SLIDING SCALE G... ACHS SC 10/16/17 17:15 11/15/17 17:14 10/19/17 07:48 9 UNITS Hydrochlorothiazide (Hydrochlorothiazide Tab) 12.5 mg QAM PO 10/17/17 09:00 11/16/17 08:59 10/19/17 07:12 12.5 MG Heparin Sodium (Porcine) (Heparin 10 Unit/ ml 5 ml Flush) 5 ml PRN PRN FLUSH 10/17/17 11:45 11/16/17 11:44 10/19/17 05:07 5 ML Objective Vital Signs Date Time Temp Pulse Resp B/P (MAP) Pulse Ox O2 Delivery O2 Flow Rate FiO2 10/19/17 07:10 Room Air 10/19/17 07:02 36.6 73 16 123/70 (87) 92 Room Air 10/18/17 23:25 Room Air 10/18/17 23:07 37.0 67 16 157/72 (100) 96 Room Air 10/18/17 20:57 63 10/18/17 15:25 36.8 54 18 117/63 (81) 95 Room Air 10/18/17 15:20 Room Air Physical Exam General Appearance: WD/WN, no apparent distress Eyes: normal inspection, EOMI, sclerae normal ENT: normal ENT inspection, pharynx normal Neck: supple, no adenopathy, thyroid normal, trachea midline Respiratory/Chest: chest non-tender, lungs clear, normal breath sounds, no respiratory distress Cardiovascular: regular rate, rhythm, no gallop, no murmur Abdomen: normal bowel sounds, non tender, soft, no organomegaly Extremities: non-tender, no calf tenderness, normal capillary refill Neurologic/Psychiatric: alert, oriented x 3 Skin: normal color, warm/dry, no rash Lymphatic: no adenopathy Laboratory Results RUN DATE: 10/19/17 [facility] PAGE 1 RUN TIME: 1033 Specimen Inquiry PATIENT: SOLOMON PARIKH LOC: [facility] U # : [id number] AGE/SX: 67/F ROOM: [facility] REG : 10/16/[address]: Christiano Hermosillo M.D. : 1950 BED: 1 DIS : STATUS: ADM IN TLOC: SPEC #: [id number] VIC: 10/16/17 STATUS: RES REQ #: [id number] RECD: 10/16/[address]: Christiano Hermosillo M.D. SOURCE: TISSUE ENTR: 10/16/[address]: Wesly Sim M.D. SPDESC: KNEE LEFT Marianne Bertrand M.D. ORDERED: ABIOLA/DELFINA CULTSMR COMMENTS: #5 Procedure Result Verified Site GRAM STAIN Final 10/17/17-45 RESULT RARE MONONUCLEATED CELLS RARE POLYS NO ORGANISMS SEEN OR AER/DELFINA CULT Preliminary 10/19/17-1032 NO GROWTH TO DATE. Last 24 Hours Test 10/18/17 11:53 10/18/17 17:07 10/18/17 20:45 10/19/17 05:08 Bedside Glucose 170 mg/dl 135 mg/dl 181 mg/dl White Blood Count 5.00 K/uL Red Blood Count 3.67 M/uL Hemoglobin 9.6 g/dL Hematocrit 30.8 % Mean Corpuscular Volume 83.9 fL Mean Corpuscular Hemoglobin 26.2 pg Mean Corpuscular Hemoglobin Concent 31.2 g/dl RDW Standard Deviation 43.5 fL RDW Coefficient of Variation 14.3 % Platelet Count 209 K/uL Mean Platelet Volume 8.9 fL Nucleated RBC Absolute Count (auto) 0.02 K/uL Nucleated Red Blood Cells % 0.3 % Sodium Level 137 mmol/L Potassium Level 3.9 mmol/L Chloride Level 99 mmol/L Carbon Dioxide Level 32 mmol/L Anion Gap 6.0 mmol/L Blood Urea Nitrogen 17 mg/dl Creatinine 1.09 mg/dl Est Creatinine Clear Calc Drug Dose 67.4 ml/min Estimated GFR () 61.3 Estimated GFR (Non- 52.9 BUN/Creatinine Ratio 15.6 Random Glucose 159 mg/dl Calcium Level 9.7 mg/dl Test 10/19/17 06:58 Bedside Glucose 185 mg/dl Assessment and Plan Infected left TKA now status post I and D, poly exchange, and placement of antibiotic beads. Negative culture results may reflect previous antibiotics given prior to surgery. Would recommend either vancomycin or daptomycin for 6 weeks, with daptomycin easier but may be more costly to patient. Would like to see in 3 weeks in outpatient follow-up. Will monitor therapy as outpatient.
--- NOTE | 2017-10-19 14:37 | Pharmacy Progress Note ---
Pharmacy Abx Dose Short Note Date of Service Oct 19, 2017. Assessment & Plan Assessment 67 year old female receiving Vancomycin for treatment of joint infection Day # 4 of antimicrobial therapy. Plan Vancomycin * Trough level of 17.5 mcg/mL is therapeutic but due to potential for accumulation will adjust the dosing interval * Changing to 1750 mg IV every 20 hours * Goal trough level for joint infection : 15 to 20 mcg/mL * Trough or random level ordered for: 10/20/17 @ 0730. Pharmacy will continue to follow and will adjust dose/frequency as necessary. Thank you.
[2017-10-19 14:55] VITALS: BP 149/72; PULSE 61; TEMP 36.7; O2SAT 99
[2017-10-19 20:46] VITALS: BP 114/57; PULSE 59
[2017-10-19 23:10] VITALS: BP 106/58; PULSE 67; TEMP 36.8; O2SAT 90
[2017-10-20] MEDS: LEVOTHYROXINE 75 MCG TAB PO SCH (05:35)
[2017-10-20] MEDS: ACETAMINOPHEN 500 MG TAB PO SCH ×3 (05:36→21:03)
[2017-10-20 07:13] VITALS: BP 136/85; PULSE 67; TEMP 36.8; O2SAT 95
[2017-10-20] MEDS ORDERED: VANCOMYCIN TROUGH ONE (07:30)
[2017-10-20] MEDS ORDERED: VANCOMYCIN IV 1,750 MG in SODIUM CHLORIDE 0.9% 500ML 500 ML IV SCH (08:00)
[2017-10-20] MEDS: RIVAROXABAN 10 MG TAB PO SCH (08:14)
[2017-10-20] MEDS: CALCIUM 600MG + VIT D 400 IU TAB PO SCH (08:14)
[2017-10-20] MEDS: CeleBREX 200 MG CAP PO SCH (08:15)
[2017-10-20] MEDS: VALSARTAN 80 MG TAB PO SCH (08:15)
[2017-10-20] MEDS: DOCUSATE SODIUM 100 MG CAP PO SCH ×2 (08:15→21:04)
[2017-10-20] MEDS: FUROSEMIDE 40 MG TAB PO SCH (08:16)
[2017-10-20] MEDS: HYDROCHLOROTHIAZIDE 25 MG TAB PO SCH (08:16)
[2017-10-20] MEDS: METOPROLOL TARTRATE 100 MG TAB PO SCH ×2 (08:17→21:04)
[2017-10-20] MEDS: PANTOprazole SOD 40 MG TAB PO SCH (08:17)
[2017-10-20] MEDS: MULTIVITAMIN TAB PO SCH (08:17)
[2017-10-20] MEDS: INSULIN ASPART 100 UNITS/ML 3 ML PEN SC SCH ×4 (08:23→21:13)
--- NOTE | 2017-10-20 13:26 | Orthopedic Progress Note ---
Orthopedic Progress Note Date of Service Oct 20, 2017. Subjective Reports: feeling well, Denies: chest pain, SOB, nausea / vomiting, light headedness, calf pain Objective calves soft nontender, N/V intact, capillary refill less than 2 sec., dressing C /D/I (PREVENA), A&O x3, toes mobile Date Time Temp Pulse Resp B/P (MAP) Pulse Ox O2 Delivery O2 Flow Rate FiO2 10/20/17 07:57 Room Air 10/20/17 07:13 36.8 67 16 136/85 (102) 95 Room Air 10/19/17 23:10 36.8 67 16 106/58 (74) 90 Room Air 10/19/17 20:46 59 114/57 (76) 10/19/17 19:00 Room Air 10/19/17 15:00 Room Air 10/19/17 14:55 36.7 61 18 149/72 (97) 99 Room Air Assessment & Plan Assessment: POD#4 SP I&D LEFT TKA MORBID OBESITY Plan: PT/OT DVT PROPH- XARELTO, CHRONIC PLAVIX (WHICH HAS BEEN HELD AT THIS TIME, RESTART WHEN XARELTO IS DC'D) PAIN MANAGEMENT MEDICAL MANAGEMENT FOLLOW CULTURES- -PICC LINE PLACED - ID ON BOARD. WILL AWAIT RECOMMENDATIONS - ABX SWITCHED TO DAPTO. SCHEDULED FOR [facility] [place]. CAN LIKELY START THERE TH. WAITING ON CONFIRMATION. DC ON HOLD. DC PLANNING- HOME WITH HOME EXERCISES VS OPPT PENDING ROM PROGRESS. Inhouse Planning Pain Management: Celebrex, Ultram, PO Tylenol, Oxy IR DVT Prophylaxis: TEDs, SCDs, Xarelto Discharge Planning Discharge Planning: home with home health
[2017-10-20] MEDS ORDERED: DAPTOmycin IV 500 MG in SYRINGE 0 ML IV SCH (14:00)
--- NOTE | 2017-10-20 15:34 | Infectious Disease Progress Nt ---
Progress Note Date of Service Oct 20, 2017. Subjective Pt evaluation today including: conversation w/ patient, physical exam, chart review, lab review, review of studies, conversation w/ workforce management consultant, review of inpatient medication list Offers no new complaints today. Remains afebrile. Pain controlled. Cultures remain negative. All Other Systems: Reviewed and Negative Medications Current Inpatient Medications Medications (Trade) Dose Ordered Sig/Pedro Route Start Time Stop Time Status Last Admin Dose Admin Celecoxib (CeleBREX CAP) 200 mg QAM PO 10/17/17 09:00 11/16/17 08:59 10/20/17 08:15 200 MG Furosemide (Lasix Tab) 40 mg QAM PO 10/17/17 09:00 11/16/17 08:59 10/20/17 08:16 40 MG Levothyroxine Sodium (Synthroid Tab) 75 mcg DAILYBB PO 10/17/17 06:00 11/16/17 05:59 10/20/17 05:35 75 MCG Metoprolol Tartrate (Lopressor Tab) 100 mg QPM PO 10/16/17 21:00 11/15/17 20:59 10/18/17 20:51 100 MG Metoprolol Tartrate (Lopressor Tab) 200 mg QAM PO 10/17/17 09:00 11/16/17 08:59 10/20/17 08:17 200 MG Pantoprazole Sodium (Protonix Tab) 40 mg QAM PO 10/17/17 09:00 11/16/17 08:59 10/20/17 08:17 40 MG Valsartan (Diovan Tab) 80 mg QAM PO 10/17/17 09:00 11/16/17 08:59 10/20/17 08:15 80 MG Calcium/Vitamin D (Caltrate Plus Tab) 1 tab QAM PO 10/17/17 09:00 11/16/17 08:59 10/20/17 08:14 1 TAB Oxycodone HCl (Roxicodone Immediate Rel Tab) 1 TABLET FOR PAIN RATING... Q4H PRN PO 10/16/17 12:45 10/30/17 12:44 10/19/17 19:04 10 MG Morphine Sulfate (MoRPHine SULFATE INJ) as needed Q2H PRN IV 10/16/17 12:45 10/30/17 12:44 Acetaminophen (Tylenol Tab) 1,000 mg Q8H PO 10/16/17 22:00 11/15/17 21:59 10/20/17 14:04 1,000 MG Magnesium Hydroxide (Milk Of Magnesia Susp) 30 ml Q6H PRN PO 10/16/17 12:45 11/15/17 12:44 Bisacodyl (Dulcolax Supp) 10 mg DAILY PRN [place] 10/16/17 12:45 11/15/17 12:44 Sodium Biphosphate/ Sodium Phosphate (Fleet Enema) 132 ml DAILY PRN [place] 10/16/17 12:45 11/15/17 12:44 Docusate Sodium (coLACE CAP) 100 mg BID PO 10/16/17 21:00 11/15/17 20:59 10/20/17 08:15 100 MG Diphenhydramine HCl (Benadryl Cap) 25 mg Q8H PRN PO 10/16/17 12:45 11/15/17 12:44 Zolpidem Tartrate (Ambien Tab) 5 mg HSZ PRN PO 10/16/17 12:45 11/15/17 12:44 Multivitamins (Multivitamin Tab) 1 tab QAM PO 10/17/17 09:00 11/16/17 08:59 10/20/17 08:17 1 TAB Ondansetron HCl (Zofran Inj) 4 mg Q6H PRN IV 10/16/17 12:45 11/15/17 12:44 Metoclopramide HCl (Reglan Inj) 10 mg Q6H PRN IV 10/16/17 12:45 11/15/17 12:44 Tramadol HCl (Ultram Tab) 1 tablet for pain rating... Q4H PRN PO 10/16/17 12:45 11/15/17 12:44 10/16/17 22:17 100 MG Rivaroxaban (Xarelto Tab) 10 mg DAILY@0800 PO 10/17/17 08:00 10/29/17 07:59 10/20/17 08:14 10 MG Insulin Aspart (novoLOG ASPART) SLIDING SCALE G... ACHS SC 10/16/17 17:15 11/15/17 17:14 10/20/17 12:46 6 UNITS Hydrochlorothiazide (Hydrochlorothiazide Tab) 12.5 mg QAM PO 10/17/17 09:00 11/16/17 08:59 10/20/17 08:16 12.5 MG Heparin Sodium (Porcine) (Heparin 10 Unit/ ml 5 ml Flush) 5 ml PRN PRN FLUSH 10/17/17 11:45 11/16/17 11:44 10/20/17 14:04 5 ML Daptomycin 500 mg/ Syringe 10 ml @ 5 mls/min Q24H IV 10/20/17 14:00 12/01/17 13:59 10/20/17 14:03 5 MLS/MIN Objective Vital Signs Date Time Temp Pulse Resp B/P (MAP) Pulse Ox O2 Delivery O2 Flow Rate FiO2 10/20/17 07:57 Room Air 10/20/17 07:13 36.8 67 16 136/85 (102) 95 Room Air 10/19/17 23:10 36.8 67 16 106/58 (74) 90 Room Air 10/19/17 20:46 59 114/57 (76) 10/19/17 19:00 Room Air Physical Exam General Appearance: WD/WN, no apparent distress, + obese Eyes: normal inspection, EOMI, sclerae normal ENT: normal ENT inspection, hearing grossly normal, pharynx normal Neck: supple, no adenopathy, thyroid normal, trachea midline Respiratory/Chest: chest non-tender, lungs clear, normal breath sounds, no respiratory distress Cardiovascular: regular rate, rhythm, no gallop, no murmur Abdomen: normal bowel sounds, non tender, soft, no organomegaly Extremities: non-tender, no calf tenderness, normal capillary refill Neurologic/Psychiatric: alert, normal mood/affect, oriented x 3 Skin: normal color, warm/dry, no rash Lymphatic: no adenopathy Laboratory Results Last 24 Hours Test 10/19/17 17:11 10/19/17 20:24 10/20/17 07:36 10/20/17 07:58 Bedside Glucose 161 mg/dl 165 mg/dl 198 mg/dl Vancomycin Level Trough 14.2 mcg/ml Test 10/20/17 11:53 Bedside Glucose 151 mg/dl Assessment and Plan Infected left TKA now status post I and D, poly exchange, and placement of antibiotic beads. Negative culture results may reflect previous antibiotics given prior to surgery. Would recommend either vancomycin or daptomycin for 6 weeks, with daptomycin easier but may be more costly to patient. Would like to see in 3 weeks in outpatient follow-up. Will monitor therapy as outpatient.
[2017-10-20 16:07] VITALS: BP 126/62; PULSE 57; TEMP 36.8; O2SAT 94
[2017-10-20 21:01] VITALS: BP 150/73; PULSE 73
[2017-10-20 23:07] VITALS: BP 135/68; PULSE 71; TEMP 36.9; O2SAT 95
[2017-10-21] MEDS: LEVOTHYROXINE 75 MCG TAB PO SCH (05:52)
[2017-10-21] MEDS: ACETAMINOPHEN 500 MG TAB PO SCH (05:52)
[2017-10-21 06:42] VITALS: BP 136/72; PULSE 60; TEMP 36.8; O2SAT 96
[2017-10-21] MEDS: PANTOprazole SOD 40 MG TAB PO SCH (07:40)
[2017-10-21] MEDS: MULTIVITAMIN TAB PO SCH (07:40)
[2017-10-21] MEDS: DOCUSATE SODIUM 100 MG CAP PO SCH (07:41)
[2017-10-21] MEDS: FUROSEMIDE 40 MG TAB PO SCH (07:41)
[2017-10-21] MEDS: METOPROLOL TARTRATE 100 MG TAB PO SCH (07:41)
[2017-10-21] MEDS: HYDROCHLOROTHIAZIDE 25 MG TAB PO SCH (07:42)
[2017-10-21] MEDS: CeleBREX 200 MG CAP PO SCH (07:42)
[2017-10-21] MEDS: VALSARTAN 80 MG TAB PO SCH (07:42)
[2017-10-21] MEDS: CALCIUM 600MG + VIT D 400 IU TAB PO SCH (07:43)
[2017-10-21] MEDS: RIVAROXABAN 10 MG TAB PO SCH (07:43)
[2017-10-21] MEDS: INSULIN ASPART 100 UNITS/ML 3 ML PEN SC SCH (07:56)
--- NOTE | 2017-10-21 08:15 | Orthopedic Progress Note ---
Orthopedic Progress Note Date of Service Oct 21, 2017. Subjective Post OP Day: 5 Reports: feeling well, Denies: complaints Objective calves soft nontender, N/V intact, dressing C/D/I (PREVENA INTACT), A&O x3, toes mobile Date Time Temp Pulse Resp B/P (MAP) Pulse Ox O2 Delivery O2 Flow Rate FiO2 10/21/17 06:42 36.8 60 16 136/72 (93) 96 Room Air 10/20/17 23:35 Room Air 10/20/17 23:07 36.9 71 16 135/68 (90) 95 Room Air 10/20/17 21:01 73 150/73 (98) 10/20/17 16:07 36.8 57 16 126/62 (83) 94 Room Air 10/20/17 15:20 Room Air Assessment & Plan Assessment: POD#5 SP I&D LEFT TKA MORBID OBESITY Plan: PT/OT DVT PROPH- XARELTO, CHRONIC PLAVIX (WHICH HAS BEEN HELD AT THIS TIME, RESTART WHEN XARELTO IS DC'D) PAIN MANAGEMENT MEDICAL MANAGEMENT FOLLOW CULTURES- -PICC LINE PLACED - ID ON BOARD. DAPTOMYCIN ANTIBIOTIC OF CHOICE - ABX TO BE GIVEN AT [facility] [place]. TO START ON THURSDAY. DC TODAY AFTER DAPTO DOSE GIVEN DC PLANNING- HOME WITH HOME EXERCISES VS OPPT PENDING ROM PROGRESS. Inhouse Planning Pain Management: Celebrex, Ultram, PO Tylenol, Oxy IR DVT Prophylaxis: TEDs, SCDs, Xarelto Discharge Planning Discharge Planning: home with home health
[2017-10-21] MEDS ORDERED: ACET-24 PO (08:20)
[2017-10-21] MEDS ORDERED: RXC5 PO (08:20)
[2017-10-21] MEDS ORDERED: XRL10 PO (08:20)
[2017-10-21] MEDS ORDERED: DAPTOMYCIN IV SCH (09:00)
[2017-10-21] MEDS ORDERED: SODIUM CHLORIDE 0.9% IV SCH (09:00)
[2017-10-21] MEDS ORDERED: DAPTOMYCIN IV 500 MG in NSS 50ML IV SCH ×2 (09:30→14:00)
[2017-10-21 09:47] VITALS: BP 136/72; PULSE 60; TEMP 36.8; O2SAT 96
--- NOTE | 2017-11-01 20:11 | DISCHARGE SUMMARY ---
CHIEF COMPLAINT: Chronic left knee pain. HISTORY OF PRESENT ILLNESS: This is a 67-year-old female patient of Dr. Hermosillo'rudy who originally underwent a left total knee replacement in 2008 and subsequently underwent a left poly exchange in 2009. The patient reported to the office approximately one week prior to surgery with increased knee pain. Laboratory studies showed CRP of 96, a sed rate of 108. The patient was also complaining of fevers btw 100-101 degrees. The patient then reported to the office on 10/11/2017. At that time, an aspiration was sent off to [facility], which came back positive for infection. The patient was scheduled for a left knee incision and drainage, synovectomy, poly exchange with possible removal of implants. PAST MEDICAL HISTORY: Hypertension, diabetes mellitus, hypothyroidism, acid reflux, obesity, dental issues and uterine cancer. POSTOPERATIVE COURSE: The patient underwent a left knee I and D, synovectomy, poly exchange and insertion of antibiotic beads with the application of superficial wound VAC on 10/16/2017. Postoperatively, she was followed closely with medical consultation, infectious disease consultation, physical therapy, pain control and DVT prophylaxis in the form of Xarelto. Her postoperative course was uneventful. Cultures and Gram stain did not grow any organisms. She was put on daptomycin for antibiotic of choice per Infectious Disease. A PICC line was placed and she was discharged on postoperative day #5 after final growth were obtained from the cultures. PHYSICAL EXAMINATION: On discharge, left knee's superficial wound VAC was clean, dry and intact. Suction was also intact. There was no redness or drainage. The patient had no calf tenderness. Negative Homans' sign. Neurologically and neurovascularly, she is intact in her left lower extremity. DIAGNOSES: Status post left knee incision and drainage, synovectomy and poly exchange with application of antibiotic beads and superficial wound, revision total knee replacement. She also has a history of hypertension, diabetes mellitus, hypothyroidism, acid reflux, obesity, dental issues and uterine cancer. PLAN: The patient was discharged home on her preadmission medications with addition of pain medications and antibiotic that being daptomycin through a PICC line which she will do as an outpatient at [facility]. The patient will follow up as scheduled as an outpatient. LAURA
== END 2017-10-21 11:17 | disposition home or self-care (01) | DRG 467 ==
LOC: C.ACU 06:25 → C.3E 12:50 → ENRESERV 13:43
PROVIDERS: ADMIT Orthopaedic Surgery Sports Medicine; ATTEND Orthopaedic Surgery Sports Medicine
PROC: 0SPW0JZ Removal of Synthetic Substitute from Left Knee Joint, Tibial Surface, Open Approach (ICD-10-PCS; principal; 2017-10-16 09:00)
PROC: 3E0U029 Introduction of Other Anti-infective into Joints, Open Approach (ICD-10-PCS; principal; 2017-10-16 09:00)
PROC: 0SRW0JZ Replacement of Left Knee Joint, Tibial Surface with Synthetic Substitute, Open Approach (ICD-10-PCS; principal; 2017-10-16 09:00)
PROC: 02HV33Z Insertion of Infusion Device into Superior Vena Cava, Percutaneous Approach (ICD-10-PCS; 2017-10-17)
DX: T84.54XA Infection and inflammatory reaction due to internal left knee prosthesis, initial encounter (principal); M00.862 Arthritis due to other bacteria, left knee; Z68.43 Body mass index [BMI] 50.0-59.9, adult; E66.2 Morbid (severe) obesity with alveolar hypoventilation; I10 Essential (primary) hypertension; E11.9 Type 2 diabetes mellitus without complications; E03.9 Hypothyroidism, unspecified; K21.9 Gastro-esophageal reflux disease without esophagitis; Z96.652 Presence of left artificial knee joint; Z85.42 Personal history of malignant neoplasm of other parts of uterus; Z88.0 Allergy status to penicillin; Z88.1 Allergy status to other antibiotic agents; Z92.3 Personal history of irradiation; M19.90 Unspecified osteoarthritis, unspecified site; Y78.2 Prosthetic and other implants, materials and accessory radiological devices associated with adverse incidents; Y92.019 Unspecified place in single-family (private) house as the place of occurrence of the external cause